=== PATIENT | female | born 1970 | race Caucasian/White ===

== ENCOUNTER 2016-04-05 15:17 | Inpatient (IN) | payer OTHER ==
[~2016-04-05] VITALS: Ht 165.1 cm; Wt 83.2 kg
[~2016-04-05 15:17] MED LIST: OXYC-57 PO; SENNTAB23 PO; TRAZ150T64 PO
[2016-04-05] MEDS ORDERED: SODIUM CHLORIDE 0.9% 1000ML 1,000 ML IV STA ×2 (15:38→17:35)
[2016-04-05] MEDS ORDERED: HYDR25TA5 PO (15:40)
[2016-04-05] MEDS ORDERED: LEVO1TAB33 PO (15:40)
[2016-04-05] MEDS ORDERED: CYM/30 PO (15:40)
[2016-04-05] MEDS ORDERED: BENZ100C84 PO (15:40)
[2016-04-05] MEDS ORDERED: OPTIRAY 320 IV PRN (15:45)
[2016-04-05 16:06] LABS: BASO % 0.7 %; BASO ABS # 0.07 K/uL (0-0.2); COMPLETE YES; EOS % 2.5 %; HEMATOCRIT 40.8 % (37-47); IG% 0.1 %; LYMPH % 23.8 %; LYMPH ABS # 2.32 K/uL (1.2-3.4); MEAN CELL VOLUME 90.5 fL (80-100); MEAN CORPUSCULAR HEMOGLOBIN 31.7 pg (25-34); MEAN PLATELET VOLUME 10.1 fL (7.4-10.4); NEUT % 66.9 %; PLATELET COUNT 305 K/uL (130-400); RED BLOOD COUNT 4.51 M/uL (4.2-5.4); WHITE BLOOD COUNT 9.74 K/uL (4.8-10.8)
[2016-04-05 16:35] LABS: BUN/CREATININE RATIO 15.9 (10-20); CALCIUM 8.6 mg/dl (8.5-10.1); CREATININE 0.88 mg/dl (0.60-1.20); MAGNESIUM 2.1 mg/dl (1.8-2.4); POTASSIUM 3.7 mmol/L (3.5-5.1)
--- NOTE | 2016-04-05 17:26 | DIAGNOSTIC IMAGING REPORT ---
CT ANGIOGRAPHY OF THE CHEST, PULMONARY EMBOLUS PROTOCOL CLINICAL HISTORY: Shortness of breath. COMPARISON STUDY: Chest CT January 04, 2015 and chest radiograph June 04, 2015. TECHNIQUE: Following IV administration of 77 mL of Optiray-320, helical axial images of the chest were obtained utilizing the pulmonary embolus protocol. Maximal intensity projections and sagittal and coronal reformats were viewed on an independent 3D workstation. IV contrast was administered without complication. CT DOSE: 379.01 mGy.cm FINDINGS: No pulmonary emboli are identified. The size the heart is normal. There is no evidence of thoracic aortic dissection. There is a trace pericardial effusion. There is a small left pleural effusion. There is moderate left lower lobe consolidation with associated tree-in-bud nodules. Note is made of mild bronchial wall thickening within the left lower lobe with multifocal mucus plugging. There is no central obstructing mass. No cavitation is present. There is no pneumothorax. Central airways are patent. Bony thorax and upper abdomen are unremarkable. A few prominent left hilar lymph nodes are likely reactive. IMPRESSION: 1. No pulmonary emboli identified. 2. Moderate left lower lobe consolidation suggestive of pneumonia. A PA and lateral chest radiograph in one month to ensure resolution is recommended. 3. Trace left pleural effusion. 4. Trace pericardial effusion. 5. A few prominent left hilar lymph nodes which are likely reactive. Electronically signed by: Jeffy De La Fuente M.D. 04/05/2016 5:24 PM Dictated Date/Time: 04/05/2016 5:16 PM
[2016-04-05] MEDS ORDERED: PIPERACILLIN/TAZOBACTAM 3.375 GM/100ML D5W IV STA (17:35)
[2016-04-05] MEDS ORDERED: VANCOMYCIN INJ 1,600 MG in SODIUM CHLORIDE 0.9% 250ML 250 ML IV STA (17:35)
[2016-04-05] MEDS ORDERED: ALBUT/IPRATROP 3MG/0.5MG NEB 3 ML VIAL INH STA (17:44)
--- NOTE | 2016-04-05 17:58 | EMERGENCY ROOM VISIT NOTE ---
History First contact with patient: 15:28 Chief Complaint: RESPIRATORY PROBLEMS Stated Complaint: PNEUMONIA Nursing Triage Summary: pt dx with pneumonia is currently on Levaquin has 1 day left pt reports being no better, productive cough short of breath History of Present Illness The patient is a 45 year old female who presents to the Emergency Room with complaints of shortness of breath for "a while." The patient reports that she was seen at [facility] 9 days ago and diagnosed with pneumonia. She has been taking Levaquin since then and states that today is day 9 of the antibiotic. She was also prescribed an albuterol inhaler but states that she can use this because it causes her to have palpitations. She reports she has been short of breath at rest. She is a healthcare worker. She reports she has had a cough with yellow sputum. She denies any history or family history of blood clots. She uses a Mirena for control. She does not smoke. She denies any recent long trips. She denies fevers/chills at home. She does report she has intermittent palpitations. She denies any chest pain, abdominal pain, nausea or vomiting. Review of Systems A complete 10-point Review of Systems was discussed with the patient, with pertinent positives and negatives listed in the History of Present Illness. All remaining Review of Systems questions can be considered negative unless otherwise specified. Past Medical/Surgical History Medical Problems: (1) HTN (hypertension) (2) Left lower lobe pneumonia (3) Tachycardia Surgical Problems: (1) H/O wisdom tooth extraction Family History Cancer Diabetes mellitus Heart disease Hypertension Social History Smoking Status: Never Smoker Alcohol Use: none Marital Status: Housing Status: lives with family Occupation Status: employed Current/Historical Medications Scheduled Duloxetine HCl (Cymbalta), 30 MG PO DAILY Hydrochlorothiazide (Hydrochlorothiazide), 25 MG PO DAILY Levofloxacin (Levaquin), 500 MG PO DAILY Trazodone Hcl (Desyrel), 200 MG PO HS Scheduled PRN Benzonatate (Tessalon Perles), 100 MG PO Q4 PRN for Cough Allergies Coded Allergies: No Known Allergies (Unverified , 04/05/16) Physical Exam Vital Signs Date Time Temp Pulse Resp B/P Pulse Ox O2 Delivery O2 Flow Rate FiO2 04/05/16 17:15 99 20 161/110 97 Room Air 04/05/16 16:01 119 04/05/16 16:00 116 20 130/105 95 Room Air 04/05/16 15:57 95 Room Air 04/05/16 15:57 95 Room Air 04/05/16 15:21 96 Room Air 04/05/16 15:19 36.8 127 20 158/95 96 Room Air Physical Exam VITALS: Vitals are noted on the nurse's note and reviewed by myself. Vital signs stable. GENERAL: This is a 45-year-old female, in no acute distress, nondiaphoretic, well-developed well-nourished. SKIN: Capillary reflex less than 2 seconds. HEENT: Normocephalic. PERRLA. EOMI. Nares patent. Mucous membranes moist. Neck is supple without nuchal rigidity. HEART: Regular rate and rhythm without murmurs gallops or rubs. LUNGS: Slight crackles in the left base. No retractions or accessory muscle use. ABDOMEN: Soft, nontender to palpation. EXTREMITIES: No lower extremity edema. NEURO: Patient was alert and oriented to person place and time. Medical Decision & Procedures ER Provider Diagnostic Interpretation: CT ANGIOGRAPHY OF THE CHEST, PULMONARY EMBOLUS PROTOCOL FINDINGS: No pulmonary emboli are identified. The size the heart is normal. There is no evidence of thoracic aortic dissection. There is a trace pericardial effusion. There is a small left pleural effusion. There is moderate left lower lobe consolidation with associated tree-in-bud nodules. Note is made of mild bronchial wall thickening within the left lower lobe with multifocal mucus plugging. There is no central obstructing mass. No cavitation is present. There is no pneumothorax. Central airways are patent. Bony thorax and upper abdomen are unremarkable. A few prominent left hilar lymph nodes are likely reactive. IMPRESSION: 1. No pulmonary emboli identified. 2. Moderate left lower lobe consolidation suggestive of pneumonia. A PA and lateral chest radiograph in one month to ensure resolution is recommended. 3. Trace left pleural effusion. 4. Trace pericardial effusion. 5. A few prominent left hilar lymph nodes which are likely reactive. Laboratory Results 04/05/16 15:52 Red Blood Count 4.51, Mean Corpuscular Volume 90.5, Mean Corpuscular Hemoglobin 31.7, Mean Corpuscular Hemoglobin Concent 35.0, Mean Platelet Volume 10.1, Neutrophils (%) (Auto) 66.9, Lymphocytes (%) (Auto) 23.8, Monocytes (%) (Auto) 6.0, Eosinophils (%) (Auto) 2.5, Basophils (%) (Auto) 0.7, Neutrophils # (Auto) 6.52, Lymphocytes # (Auto) 2.32, Monocytes # (Auto) 0.58, Eosinophils # (Auto) 0.24, Basophils # (Auto) 0.07 04/05/16 15:52 Test 04/05/16 15:00 04/05/16 15:52 Influenza Type A Antigen Neg for Influ A (NEG) Influenza Type B Antigen Neg for Influ B (NEG) White Blood Count 9.74 K/uL (4.8-10.8) Red Blood Count 4.51 M/uL (4.2-5.4) Hemoglobin 14.3 g/dL (12.0-16.0) Hematocrit 40.8 % (37-47) Mean Corpuscular Volume 90.5 fL (80-100) Mean Corpuscular Hemoglobin 31.7 pg (25-34) Mean Corpuscular Hemoglobin Concent 35.0 g/dl (32-36) Platelet Count 305 K/uL (130-400) Mean Platelet Volume 10.1 fL (7.4-10.4) Neutrophils (%) (Auto) 66.9 % Lymphocytes (%) (Auto) 23.8 % Monocytes (%) (Auto) 6.0 % Eosinophils (%) (Auto) 2.5 % Basophils (%) (Auto) 0.7 % Neutrophils # (Auto) 6.52 K/uL (1.4-6.5) Lymphocytes # (Auto) 2.32 K/uL (1.2-3.4) Monocytes # (Auto) 0.58 K/uL (0.11-0.59) Eosinophils # (Auto) 0.24 K/uL (0-0.5) Basophils # (Auto) 0.07 K/uL (0-0.2) RDW Standard Deviation 45.6 fL (36.4-46.3) RDW Coefficient of Variation 13.9 % (11.5-14.5) Immature Granulocyte % (Auto) 0.1 % Immature Granulocyte # (Auto) 0.01 K/uL (0.00-0.02) Anion Gap 12.0 mmol/L (3-11) Est Creatinine Clear Calc Drug Dose 87.2 ml/min Estimated GFR () 93.3 Estimated GFR (Non- 80.5 BUN/Creatinine Ratio 15.9 (10-20) Calcium Level 8.6 mg/dl (8.5-10.1) Magnesium Level 2.1 mg/dl (1.8-2.4) Total Bilirubin 0.3 mg/dl (0.2-1) Aspartate Amino Transf (AST/SGOT) 18 U/L (15-37) Alanine Aminotransferase (ALT/SGPT) 20 U/L (12-78) Alkaline Phosphatase 80 U/L (45-117) Total Protein 7.4 gm/dl (6.4-8.2) Albumin 3.7 gm/dl (3.4-5.0) Globulin 3.7 gm/dl (2.5-4.0) Albumin/Globulin Ratio 1.0 (0.9-2) Chemistry Specimen Hemolysis Date/Time Source Procedure Growth Status 04/05/16 00:00 Nasal MRSA DNA Surveillance Screen - Final Specimen Negative for MRSA by DNA Probe Complete Medications Administered Medications (Trade) Dose Ordered Sig/Christina Route Start Time Stop Time Status Last Admin Dose Admin Sodium Chloride 1,000 ml @ 999 mls/hr Q1H1M STAT IV 04/05/16 15:38 04/05/16 16:38 DC 04/05/16 16:03 999 MLS/HR Sodium Chloride 1,000 ml @ 999 mls/hr Q1H1M STAT IV 04/05/16 17:35 04/05/16 18:36 DC 04/05/16 17:51 999 MLS/HR Vancomycin HCl/ Sodium Chloride (Vancomycin Inj/ Nss 500ml) 532 ml @ 200 mls/hr NOW ONCE IV 04/05/16 18:00 04/05/16 20:39 DC 04/05/16 19:45 200 MLS/HR Albuterol/ Ipratropium 3 ml 3 ml NOW STAT INH 04/05/16 17:44 04/05/16 17:45 DC 04/05/16 17:49 3 ML Piperacillin Sod/ Tazobactam Sod/ Dextrose (Zosyn Iv/D5 100ml) 115 ml @ 230 mls/hr NOW ONCE IV 04/05/16 18:00 04/05/16 18:36 DC 04/05/16 18:38 230 MLS/HR Tramadol HCl (Ultram Tab) 100 mg Q4H PRN PO 04/05/16 18:15 2 18:14 04/05/16 18:38 100 MG Medical Decision Differential diagnosis includes pulmonary embolism, pneumonia, sepsis, pleural effusion, pneumothorax, arrhythmia, among others. The patient was evaluated as above. Labs were drawn and IV access was obtained. Imaging studies were performed and read by radiology as above. The patient was hydrated with 2 L normal saline solution. She was given a dose of vancomycin and Zosyn. She was given a DuoNeb treatment. The patient was reassessed multiple times during their stay in the emergency department and remained in stable condition. The patient is a 45-year-old female who presents today complaining of shortness of breath. The patient is currently being treated with Levaquin as an outpatient for pneumonia. She has already completed a 9 day course. She did appear slightly dyspneic at rest on my initial examination. Vital signs revealed a tachycardia in the 120s. EKG showed a sinus tachycardia. Labs revealed no leukocytosis, anemia or concerning electrolyte abnormalities. Lactic acid was elevated at 2.1. Blood cultures were drawn. Due to the patient 's dyspnea and tachycardia, a CT angiography was performed. This study was negative for pulmonary embolism, but did show evidence of a left lower pneumonia. The patient will be admitted for further evaluation of her pneumonia , possible sepsis and failed outpatient therapy. 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 Case was discussed with Dr. Pisano, ED attending physician, who agreed with my assessment and treatment plan. The patient's case was discussed with Dr. Patel, [facility] hospitalist, who agreed to evaluate the patient. Impression Primary Impression: Left lower lobe pneumonia Departure Information Referrals Michelle Cardozo MD (PCP) Patient Instructions A Signature Page, [facility]
[2016-04-05] MEDS ORDERED: PIPERACILL/TAZOBAC IV 3.375 GM in DEXTROSE 5% 100ML IV ONE (18:00)
[2016-04-05] MEDS ORDERED: VANCOMYCIN INJ 1,600 MG in SODIUM CHLORIDE 0.9% 500ML 500 ML IV ONE (18:00)
[2016-04-05] MEDS ORDERED: DiphenhydrAMINE HCL 50 MG/ML VIAL IV PRN (18:15)
[2016-04-05] MEDS ORDERED: ONDANSETRON INJ 2 MG/ML 2 ML VIAL IV PRN ×2 (18:15)
[2016-04-05] MEDS ORDERED: TRAMADOL HCL 50 MG TAB PO PRN (18:15)
[2016-04-05] MEDS ORDERED: KETOROLAC TROMETHAMINE 30 MG/ML VIAL IV PRN (18:15)
[2016-04-05] MEDS ORDERED: ALUMINUM/MAGNESIUM/SIMETH (MAALOX MAX) 30 ML UDC PO PRN (18:15)
[2016-04-05] MEDS ORDERED: MAGNESIUM HYDROXIDE SUSP 30 ML UDC PO PRN (18:15)
[2016-04-05] MEDS ORDERED: ZOLPIDEM TARTRATE 5 MG TAB PO PRN (18:15)
[2016-04-05] MEDS ORDERED: BISACODYL 10 MG SUPP PR PRN (18:15)
[2016-04-05] MEDS ORDERED: MoRPHine SULFATE 4 MG/ML 1 ML CARP\\VIAL IV PRN (18:15)
[2016-04-05] MEDS ORDERED: HYDROCODONE/HOMATROPINE SYRUP 5MG/1.5MG 5ML UDP PO PRN ×2 (18:15)
[2016-04-05] MEDS ORDERED: LORAZEPAM 2 MG/ML 1 ML VIAL IV PRN (18:15)
[2016-04-05] MEDS ORDERED: PROMETHAZINE HCL INJ 12.5 MG in SODIUM CHLORIDE 0.9% 50ML 50 ML IV PRN (18:15)
[2016-04-05] MEDS ORDERED: ACETAMINOPHEN 325 MG TAB PO PRN (18:15)
[2016-04-05] MEDS ORDERED: MoRPHine SULFATE 2 MG/ML CARP IV PRN (18:15)
[2016-04-05] MEDS: TRAMADOL HCL 50 MG TAB PO PRN (18:38)
[2016-04-05] MEDS ORDERED: PIPERACILL/TAZOBAC CONSULT ACTIVE PRN (19:30)
[2016-04-05] MEDS ORDERED: VANCOMYCIN CONSULT ACTIVE PRN (19:30)
[2016-04-05 19:45] VITALS: BP 146/110; PULSE 97; TEMP 36.6; O2SAT 97; Ht 165.1 cm; Wt 83.2 kg
--- NOTE | 2016-04-05 20:12 | History and Physical ---
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 She has not been able to use the albuterol inhaler prescribed as it makes her heart race. She continues to have cough productive of yellow sputum, and continues to have heart palpitations. Past Medical/Surgical History Medical Problems: (1) HTN (hypertension) Status: Chronic Surgical Problems: (1) H/O wisdom tooth extraction Status: Resolved Family History Cancer Diabetes mellitus Heart disease Hypertension Social History Smoking Status: Never Smoker Smokeless Tobacco Use: No Alcohol Use: none Drug Use: none Marital Status: Housing status: lives with family Occupational Status: employed Immunizations History of Influenza Vaccine: No History of Tetanus Vaccine?: Unknown History of Pneumococcal: No History of Hepatitis B Vaccine: No Multi-Drug Resistant Organisms History of MDRO: No Allergies Coded Allergies: No Known Allergies (Unverified , 04/05/16) Home Medications Scheduled Duloxetine HCl (Cymbalta), 30 MG PO DAILY Hydrochlorothiazide (Hydrochlorothiazide), 25 MG PO DAILY Levofloxacin (Levaquin), 500 MG PO DAILY Trazodone Hcl (Desyrel), 200 MG PO HS Scheduled PRN Benzonatate (Tessalon Perles), 100 MG PO Q4 PRN for Cough Review of Systems The patient denies lower extremity swelling, vision change, hearing change, sore throat, fevers, chills, sweats, weight change, fatigue, nausea, vomiting, abdominal pain, pelvic pain, blood in urine or stool, dysuria, urinary frequency or urgency, lightheadedness, dizziness, headache, memory loss, rash, abnormal bruising or bleeding, imbalance, focal weakness, numbness or tingling in arms or legs, arthralgias or myalgias, back or neck pain, night sweats. The review of systems is otherwise negative other than for that already noted above, and at least 10 systems have been reviewed. Physical Exam Vital Signs Date Time Temp Pulse Resp B/P Pulse Ox O2 Delivery O2 Flow Rate FiO2 04/05/16 18:50 107 20 138/96 96 Room Air 04/05/16 17:15 99 20 161/110 97 Room Air 04/05/16 16:01 119 04/05/16 16:00 116 20 130/105 95 Room Air 04/05/16 15:57 95 Room Air 04/05/16 15:57 95 Room Air 04/05/16 15:21 96 Room Air 04/05/16 15:19 36.8 127 20 158/95 96 Room Air The patient is awake, well-developed and adequately nourished, alert and oriented 3, normocephalic and atraumatic, lying in bed and in acute distress during paroxysmal coughing. HEENT--PERRL, EOMI, mucous membranes moist, and oropharynx normal. Neck--supple, no JVD or bruits, thyroid normal, trachea midline, no adenopathy. Heart--normal S1 and S2, no extra beats, no murmurs, rubs or gallops. Lungs--decreased breath sounds left greater than right base. Abdomen--normal bowel sounds and soft, nontender and nondistended, no hernias or masses, no organomegaly. Extremities--no cyanosis, clubbing or edema. There are good distal pulses b/l. Dermatologic--normal skin turgor, normal color, warm and dry, no abnormal lymph nodes, no rash. Neurologic--cranial nerves II through XII grossly intact, motor and sensory examination normal. Rheumatologic--normal range of motion, nontender, muscles and joints. Psychiatric--normal affect. Diagnostics Laboratory Results Results Past 24 Hours Test 04/05/16 15:00 04/05/16 15:52 04/05/16 19:05 Range/Units Influenza Type A Antigen Neg for Influ A NEG Influenza Type B Antigen Neg for Influ B NEG White Blood Count 9.74 4.8-10.8 K/uL Red Blood Count 4.51 4.2-5.4 M/uL Hemoglobin 14.3 12.0-16.0 g/dL Hematocrit 40.8 37-47 % Mean Corpuscular Volume 90.5 80-100 fL Mean Corpuscular Hemoglobin 31.7 25-34 pg Mean Corpuscular Hemoglobin Concent 35.0 32-36 g/dl Platelet Count 305 130-400 K/uL Mean Platelet Volume 10.1 7.4-10.4 fL Neutrophils (%) (Auto) 66.9 % Lymphocytes (%) (Auto) 23.8 % Monocytes (%) (Auto) 6.0 % Eosinophils (%) (Auto) 2.5 % Basophils (%) (Auto) 0.7 % Neutrophils # (Auto) 6.52 1.4-6.5 K/uL Lymphocytes # (Auto) 2.32 1.2-3.4 K/uL Monocytes # (Auto) 0.58 0.11-0.59 K/uL Eosinophils # (Auto) 0.24 0-0.5 K/uL Basophils # (Auto) 0.07 0-0.2 K/uL RDW Standard Deviation 45.6 36.4-46.3 fL RDW Coefficient of Variation 13.9 11.5-14.5 % Immature Granulocyte % (Auto) 0.1 % Immature Granulocyte # (Auto) 0.01 0.00-0.02 K/uL Sodium Level 140 136-145 mmol/L Potassium Level 3.7 3.5-5.1 mmol/L Chloride Level 101 98-107 mmol/L Carbon Dioxide Level 27 21-32 mmol/L Anion Gap 12.0 3-11 mmol/L Blood Urea Nitrogen 14 7-18 mg/dl Creatinine 0.88 0.60-1.20 mg/dl Est Creatinine Clear Calc Drug Dose 87.2 ml/min Estimated GFR () 93.3 Estimated GFR (Non- 80.5 BUN/Creatinine Ratio 15.9 10-20 Random Glucose 113 70-99 mg/dl Lactic Acid Level 2.1 1.7 0.4-2.0 mmol/L Calcium Level 8.6 8.5-10.1 mg/dl Magnesium Level 2.1 1.8-2.4 mg/dl Total Bilirubin 0.3 0.2-1 mg/dl Aspartate Amino Transf (AST/SGOT) 18 15-37 U/L Alanine Aminotransferase (ALT/SGPT) 20 12-78 U/L Alkaline Phosphatase 80 45-117 U/L Total Protein 7.4 6.4-8.2 gm/dl Albumin 3.7 3.4-5.0 gm/dl Globulin 3.7 2.5-4.0 gm/dl Albumin/Globulin Ratio 1.0 0.9-2 Chemistry Specimen Hemolysis Microbiology Results 04/05/16 Blood Culture, Received Pending 04/05/16 Blood Culture, Received Pending Diagnostic Radiology Patient Name: MARY FELDMAN Unit Number: [id number] Dictated: 04/05/161715 Transcribed: 04/05/161715 JA Printed Date/Time: [~ rep prt dt]/[~ rep prt tm] [~ rep ct labl] - [~ rep ct ivnm] [facility] [place] [address] Dictated: 04/05/161715 Transcribed: 04/05/161715 JA Printed Date/Time: [~ rep prt dt]/[~ rep prt tm] [~ rep ct labl] - [~ rep ct ivnm] [~ rep ct add3]] CT ANGIOGRAPHY OF THE CHEST, PULMONARY EMBOLUS PROTOCOL CLINICAL HISTORY: Shortness of breath. COMPARISON STUDY: Chest CT January 04, 2015 and chest radiograph June 04, 2015. TECHNIQUE: Following IV administration of 77 mL of Optiray-320, helical axial images of the chest were obtained utilizing the pulmonary embolus protocol. Maximal intensity projections and sagittal and coronal reformats were viewed on an independent 3D workstation. IV contrast was administered without complication. CT DOSE: 379.01 mGy.cm FINDINGS: No pulmonary emboli are identified. The size the heart is normal. There is no evidence of thoracic aortic dissection. There is a trace pericardial effusion. There is a small left pleural effusion. There is moderate left lower lobe consolidation with associated tree-in-bud nodules. Note is made of mild bronchial wall thickening within the left lower lobe with multifocal mucus plugging. There is no central obstructing mass. No cavitation is present. There is no pneumothorax. Central airways are patent. Bony thorax and upper abdomen are unremarkable. A few prominent left hilar lymph nodes are likely reactive. IMPRESSION: 1. No pulmonary emboli identified. 2. Moderate left lower lobe consolidation suggestive of pneumonia. A PA and lateral chest radiograph in one month to ensure resolution is recommended. 3. Trace left pleural effusion. 4. Trace pericardial effusion. 5. A few prominent left hilar lymph nodes which are likely reactive. Electronically signed by: Jeffy De La Fuente M.D. 04/05/2016 5:24 PM Dictated Date/Time: 04/05/2016 5:16 PM The status of this report is Signed. Draft = Not yet reviewed or approved by Radiologist. Signed = Reviewed and approved by Radiologist. <AttendingPhy></AttendingPhy> <FamilyPhy>Michelle Cardozo MD</FamilyPhy> < PrimaryPhy>Michelle Cardozo MD</PrimaryPhy> <UnitNumber>[id number]</UnitNumber > <VisitNumber>[id number]</VisitNumber> <PatientName>MARY FELDMAN</ PatientName> <DateOfBirth>1970</DateOfBirth> <Location>[facility]</Location> < ServiceDate>04/05/16</ServiceDate> <MNE>ESINDI</MNE> <OrderingPhy>Catalina Adam PA-C</OrderingPhy> <OrderingPhyMNE>f rep ord dr alexis</OrderingPhyMNE> < DictatingPhyMNE>f rep dict dr alexis</DictatingPhyMNE> <CCListMNE>f rep ct mne</ CCListMNE> <AdmittingPhyMNE>f pt admit dr alexis</AdmittingPhyMNE> <AttendingPhyMNE >f pt attend dr alexis</AttendingPhyMNE> <ConsultingPhyMNE>f pt consult dr alexis</ConsultingPhyMNE> <FamilyPhyMNE>f pt fam dr alexis</FamilyPhyMNE> <OtherPhyMNE>f pt other dr alexis</OtherPhyMNE> < PrimaryPhyMNE>f pt prim care dr alexis</PrimaryPhyMNE> <ReferringPhyMNE>f pt referring dr alexis</ReferringPhyMNE> Impression Assessment and Plan 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 She'll be placed on vancomycin IV per pharmacy adjusted dosing, Zosyn 3.375 mg IV every 6 hours, Levaquin 500 mg IV daily, guaifenesin extended release 600 mg by mouth twice a day, Xopenex with Atrovent nebulizers to use every 6 hours while awake every 2 hours when necessary, Hycodan syrup 5-10 ML's by mouth every 6 hours when necessary cough, Solu-Medrol 40 mg IV every 8 hours, and nasal cannula 2 L O2 titrated to keep pulse ox greater than or equal to 92%. Hypertension with tachycardia--patient reports that she had recently been started on Hydrocort thiazide by her PCP and was due for a follow-up visit soon. We'll hold the HCTZ since she is relatively volume depleted at this point , and so place her on Cardizem 30 mg by mouth every 6 hours with hold parameters. Insomnia--continue trazodone 200 mg by mouth at bedtime. Depression--continue duloxetine 30 mg by mouth daily. Headache--we'll have available Tylenol when necessary, tramadol when necessary, morphine IV when necessary. Level of Care Telemetry Advanced Directives Existing Advance Directive: No Existing Living Will: No Existing Power of Sales Incentive Analyst: No Resuscitation Status FULL RESUSCITATION VTE Prophylaxis VTE Risk Assessment Done? Y/N: Yes Risk Level: Low Given or contraindicated: SCD's Social Service Consult None Apply
[2016-04-05] MEDS: DILTIAZEM HCL 30 MG TAB PO SCH (20:54)
[2016-04-05] MEDS: GUAIFENESIN 600 MG TABCR PO SCH (20:54)
[2016-04-05] MEDS: METHYLPREDNISOLONE IV 40 MG in SYRINGE 0 ML IV SCH (20:55)
[2016-04-05] MEDS ORDERED: LEVALBUTEROL/IPRATROPIUM NEB INH SCH (21:00)
[2016-04-05 21:23] VITALS: PULSE 86; O2SAT 96
[2016-04-05] MEDS: LEVALBUTEROL 1.25MG/0.5ML NEB INH SCH (21:23)
[2016-04-05] MEDS: IPRATROPIUM BROMIDE NEB SOLN 0.02% 2.5 ML VIAL INH SCH (21:23)
--- NOTE | 2016-04-05 21:45 | Pharmacy Progress Note ---
Pharmacy Antibiotic Consult Date of Service: Apr 05, 2016. Pharmacy Dosing Scope Pharmacy is consulted to initiate IV Vancomycin/Zosyn dosing therapy, order appropriate labs and adjust drug dose/frequency. Subjective The patient is a 45 year old female admitted on Apr 05, 2016 at 18:15. Objective Height (Feet): 5 Height (Inches): 5.00 Weight (Kilograms): 82.700 Lab Results (24hrs): Laboratory Tests Test 04/05/16 15:52 BUN/Creatinine Ratio 15.9 Blood Urea Nitrogen 14 mg/dl Creatinine 0.88 mg/dl White Blood Count 9.74 K/uL Red Blood Count 4.51 M/uL Hemoglobin 14.3 g/dL Hematocrit 40.8 % Mean Corpuscular Volume 90.5 fL Mean Corpuscular Hemoglobin 31.7 pg Mean Corpuscular Hemoglobin Concent 35.0 g/dl Platelet Count 305 K/uL Mean Platelet Volume 10.1 fL Neutrophils (%) (Auto) 66.9 % Lymphocytes (%) (Auto) 23.8 % Monocytes (%) (Auto) 6.0 % Eosinophils (%) (Auto) 2.5 % Basophils (%) (Auto) 0.7 % Neutrophils # (Auto) 6.52 K/uL Lymphocytes # (Auto) 2.32 K/uL Monocytes # (Auto) 0.58 K/uL Eosinophils # (Auto) 0.24 K/uL Basophils # (Auto) 0.07 K/uL Micro Results: Item Value Date Time Blood Culture Received 04/05/16 1548 Blood Pending Blood Culture Received 04/05/16 1548 Blood Pending Recent Pertinent Medications Item Value Date Time Vancomycin HCl 532 ml @ 200 mls/hr 04/05/16 1800 1600 mg/Sodium NOW ONCE/IV 04/05/16 1945 Chloride Vancomycin HCl 275 ml @ 125 mls/hr 04/06/16 0600 1250 mg/Sodium Q8H/IV Chloride Item Value Date Time Piperacillin Sod/ 115 ml @ 230 mls/hr 04/05/16 1800 Tazobactam Sod NOW ONCE/IV 04/05/16 1838 3.375 gm/Dextrose Piperacillin Sod/ 115 ml @ 28.75 mls/hr 04/06/16 0200 Tazobactam Sod Q8H/IV 3.375 gm/Dextrose Item Value Date Time Levofloxacin 100 ml @ 100 mls/hr 04/05/16 2200 Assessment & Plan 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 Thank you
[2016-04-05] MEDS ORDERED: LEVOFLOXACIN / D5W 500 MG IV SCH (22:00)
[2016-04-05] MEDS ORDERED: NURSING VERBAL MED ORDER ONE (23:00)
[2016-04-05] MEDS: TRAZODONE HCL 100 MG TAB PO SCH (23:30)
[2016-04-06] VITALS (9 sets, daily range): BP systolic 106–137; BP diastolic 65–91; PULSE 76–127; TEMP 36.7–36.9; O2SAT 93–96
[2016-04-06] MEDS: LEVALBUTEROL 1.25MG/0.5ML NEB INH SCH ×4 (02:25→20:34)
[2016-04-06] MEDS: PIPERACILL/TAZOBAC IV 3.375 GM in DEXTROSE 5% 100ML 100 ML IV SCH ×3 (02:25→18:35)
[2016-04-06] MEDS: IPRATROPIUM BROMIDE NEB SOLN 0.02% 2.5 ML VIAL INH SCH ×4 (02:25→20:34)
[2016-04-06 05:54] LABS: BASO % 0.3 %; BASO ABS # 0.02 K/uL (0-0.2); COMPLETE YES; HEMATOCRIT 38.6 % (37-47); IG% 0.3 %; LYMPH % 12.1 %; LYMPH ABS # 0.85 K/uL (1.2-3.4); MEAN CELL VOLUME 90.6 fL (80-100); MEAN CORPUSCULAR HEMOGLOBIN 30.8 pg (25-34); MEAN CORPUSCULAR HGB CONC 33.9 g/dl (32-36); MEAN PLATELET VOLUME 9.8 fL (7.4-10.4); MONO % 0.1 %; NEUT % 87.2 %; PLATELET COUNT 270 K/uL (130-400); RED BLOOD COUNT 4.26 M/uL (4.2-5.4); WHITE BLOOD COUNT 7.05 K/uL (4.8-10.8)
[2016-04-06] MEDS ORDERED: VANCOMYCIN INJ 1,250 MG in SODIUM CHLORIDE 0.9% 250ML 250 ML IV SCH (06:00)
[2016-04-06 06:24] LABS: BUN/CREATININE RATIO 10.6 (10-20); CALCIUM 7.9 mg/dl (8.5-10.1); CREATININE 0.85 mg/dl (0.60-1.20); MAGNESIUM 2.3 mg/dl (1.8-2.4); POTASSIUM 4.1 mmol/L (3.5-5.1)
[2016-04-06] MEDS: METHYLPREDNISOLONE IV 40 MG in SYRINGE 0 ML IV SCH (07:00)
[2016-04-06] MEDS: TRAMADOL HCL 50 MG TAB PO PRN ×3 (08:22→23:14)
[2016-04-06] MEDS: DILTIAZEM HCL 30 MG TAB PO SCH ×4 (08:23→20:22)
[2016-04-06] MEDS: GUAIFENESIN 600 MG TABCR PO SCH ×2 (08:23→20:22)
--- NOTE | 2016-04-06 14:46 | Progress Note ---
Subjective Date of Service: Apr 06, 2016. Subjective Pt evaluation today including: conversation w/ patient, physical exam, lab review, review of studies, review of inpatient medication list Pain: no pain PO Intake: adequate Voiding: no voiding problems discussed events from the past week, she was seen at urgent care 10 days ago and started on Levaquin for pneumonia reports that she never felt better despite taking the Levaquin she experienced heart palpitations and tachycardia so she stopped Albuterol 5 days ago she presented with tachycardia, increased dyspnea, productive cough with yellow sputum CT chest ruled out a PE but did show a left lower lobe consolidation Review of Systems Constitutional: + chills, + fatigue, + sweats, + weakness, No fever, No weight loss Respiratory: + cough, + dyspnea on exertion, + sputum, No dyspnea at rest, No hemoptysis, No shortness of breath, No wheezing Cardiac: No PND, No chest pain, No claudication, No edema, No orthopnea Abdomen: No GI bleeding, No constipation, No diarrhea, No nausea, No pain, No problem reported, No see HPI, No vomiting Musculoskeletal: No calf pain, No joint pain, No muscle pain, No problem reported, No see HPI, No swelling Neurologic: No balance problems, No memory loss, No numbness/tingling, No paralysis, No problem reported, No see HPI, No vertigo, No weakness Psychiatric: No anhedonism, No anxiety, No depression symptoms, No insomnia, No problem reported, No see HPI, No substance abuse Heme: No abnormal bleeding/bruising, No clotting problems, No night sweats, No problem reported, No see HPI, No swollen lymph nodes Endo: No excessive thirst, No excessive urination, No fatigue, No problem reported, No see HPI Skin: No bleeding, No color change, No itch, No new/changing skin lesions, No problem reported, No rash, No see HPI Medications Current Inpatient Medications Medications (Trade) Dose Ordered Sig/Christina Route Start Time Stop Time Status Last Admin Dose Admin Ioversol (Optiray 320) 100 ml UD PRN IV 04/05/16 15:45 04/09/16 15:44 Lorazepam (Ativan Inj) 0.5 mg Q4H PRN IV 04/05/16 18:15 05/05/16 18:14 Acetaminophen (Tylenol Tab) 650 mg Q4H PRN PO 04/05/16 18:15 05/05/16 18:14 Magnesium Hydroxide (Milk Of Magnesia Susp) 30 ml Q6H PRN PO 04/05/16 18:15 05/05/16 18:14 Bisacodyl (Dulcolax Supp) 10 mg DAILY PRN [place] 04/05/16 18:15 05/05/16 18:14 Diphenhydramine HCl (Benadryl Inj) 25 mg Q4H PRN IV 04/05/16 18:15 05/05/16 18:14 Al Hydrox/Mg Hydrox/ Simethicone 15 ml 15 ml Q4H PRN PO 04/05/16 18:15 05/05/16 18:14 Promethazine HCl/ Sodium Chloride (Phenergan Inj/ Nss 50ml) 50.5 ml @ 202 mls/hr Q4H PRN IV 04/05/16 18:15 05/05/16 18:14 Zolpidem Tartrate (Ambien Tab) 5 mg HSZ PRN PO 04/05/16 18:15 05/05/16 18:14 Morphine Sulfate (MoRPHine SULFATE INJ) 2 mg Q2H PRN IV 04/05/16 18:15 04/19/16 18:14 Morphine Sulfate (MoRPHine SULFATE INJ) 4 mg Q2H PRN IV 04/05/16 18:15 04/19/16 18:14 Tramadol HCl (Ultram Tab) 100 mg Q4H PRN PO 04/05/16 18:15 05/05/16 18:14 04/06/16 14:26 100 MG Tramadol HCl (Ultram Tab) 50 mg Q4H PRN PO 04/05/16 18:15 05/05/16 18:14 04/05/16 23:32 50 MG Ketorolac Tromethamine 30 mg 30 mg Q6H PRN IV 04/05/16 18:15 04/10/16 18:14 04/06/16 11:02 30 MG Piperacillin Sod/ Tazobactam Sod/ Dextrose (Zosyn Iv/D5 100ml) 115 ml @ 28.75 mls/ hr Q8H IV 04/06/16 02:00 04/13/16 01:59 04/06/16 11:00 28.75 MLS/HR Ondansetron HCl (Zofran Inj) 4 mg Q6H PRN IV 04/05/16 18:15 05/05/16 18:14 Guaifenesin (Mucinex Contr Rel Tab) 600 mg BID PO 04/05/16 21:00 05/05/16 20:59 04/06/16 08:23 600 MG Hydrocodone Bit/ Homatropine Methylb (Hycodan Syrup) 5 ml Q4H PRN PO 04/05/16 18:15 04/19/16 18:14 Hydrocodone Bit/ Homatropine Methylb (Hycodan Syrup) 10 ml Q4H PRN PO 04/05/16 18:15 04/19/16 18:14 Diltiazem HCl (Cardizem Tab) 30 mg QID PO 04/05/16 21:00 05/05/16 20:59 04/06/16 14:22 30 MG Piperacillin Sod/ Tazobactam Sod (Consult) 1 ea UD PRN N/A 04/05/16 19:30 05/05/16 19:29 Ipratropium [place] (Atrovent 0.02% 0.5MG/2.5ML Neb) 0.5 mg Q6R INH 04/05/16 21:00 05/05/16 20:59 04/06/16 07:45 0.5 MG Levalbuterol (Xopenex 1.25MG/ 0.5ML Neb) 1.25 mg Q6R INH 04/05/16 21:00 05/05/16 20:59 04/06/16 07:45 1.25 MG Trazodone HCl (Desyrel Tab) 200 mg HS PO 04/05/16 23:30 05/05/16 23:29 04/05/16 23:30 200 MG Objective Vital Signs Date Time Temp Pulse Resp B/P Pulse Ox O2 Delivery O2 Flow Rate FiO2 04/06/16 08:00 36.9 100 22 130/80 93 Room Air 04/06/16 08:00 93 Room Air 04/06/16 07:45 79 14 93 Room Air 04/06/16 04:00 94 Room Air 04/06/16 04:00 36.8 76 15 106/65 93 Room Air 04/06/16 00:00 94 Room Air 04/06/16 00:00 36.7 93 20 137/91 94 Room Air 04/05/16 21:23 86 14 96 Room Air 04/05/16 19:45 36.6 97 15 146/110 97 Room Air 04/05/16 18:50 107 20 138/96 96 Room Air 04/05/16 17:15 99 20 161/110 97 Room Air 04/05/16 16:01 119 04/05/16 16:00 116 20 130/105 95 Room Air 04/05/16 15:57 95 Room Air 04/05/16 15:57 95 Room Air 04/05/16 15:21 96 Room Air 04/05/16 15:19 36.8 127 20 158/95 96 Room Air Physical Exam General Appearance: WD/WN, no apparent distress Eyes: normal inspection, EOMI, sclerae normal ENT: normal ENT inspection, hearing grossly normal, pharynx normal Neck: supple, no adenopathy, no JVD, trachea midline Respiratory/Chest: chest non-tender, normal breath sounds, no respiratory distress, no accessory muscle use, + decreased breath sounds, + crackles (left base) Cardiovascular: no edema, no gallop, no JVD, no murmur, + tachycardia Abdomen: normal bowel sounds, non tender, soft, no organomegaly Extremities: normal range of motion, non-tender, normal inspection, no pedal edema, no calf tenderness Neurologic/Psychiatric: 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, no motor/sensory deficits, alert, normal mood/affect, oriented x 3 Laboratory Results Last 24 Hours Test 04/05/16 15:00 04/05/16 15:52 04/05/16 19:05 04/06/16 05:35 Influenza Type A Antigen Neg for Influ A Influenza Type B Antigen Neg for Influ B White Blood Count 9.74 K/uL 7.05 K/uL Red Blood Count 4.51 M/uL 4.26 M/uL Hemoglobin 14.3 g/dL 13.1 g/dL Hematocrit 40.8 % 38.6 % Mean Corpuscular Volume 90.5 fL 90.6 fL Mean Corpuscular Hemoglobin 31.7 pg 30.8 pg Mean Corpuscular Hemoglobin Concent 35.0 g/dl 33.9 g/dl Platelet Count 305 K/uL 270 K/uL Mean Platelet Volume 10.1 fL 9.8 fL Neutrophils (%) (Auto) 66.9 % 87.2 % Lymphocytes (%) (Auto) 23.8 % 12.1 % Monocytes (%) (Auto) 6.0 % 0.1 % Eosinophils (%) (Auto) 2.5 % 0.0 % Basophils (%) (Auto) 0.7 % 0.3 % Neutrophils # (Auto) 6.52 K/uL 6.15 K/uL Lymphocytes # (Auto) 2.32 K/uL 0.85 K/uL Monocytes # (Auto) 0.58 K/uL 0.01 K/uL Eosinophils # (Auto) 0.24 K/uL 0.00 K/uL Basophils # (Auto) 0.07 K/uL 0.02 K/uL RDW Standard Deviation 45.6 fL 46.1 fL RDW Coefficient of Variation 13.9 % 13.9 % Immature Granulocyte % (Auto) 0.1 % 0.3 % Immature Granulocyte # (Auto) 0.01 K/uL 0.02 K/uL Sodium Level 140 mmol/L 142 mmol/L Potassium Level 3.7 mmol/L 4.1 mmol/L Chloride Level 101 mmol/L 106 mmol/L Carbon Dioxide Level 27 mmol/L 24 mmol/L Anion Gap 12.0 mmol/L 12.0 mmol/L Blood Urea Nitrogen 14 mg/dl 9 mg/dl Creatinine 0.88 mg/dl 0.85 mg/dl Est Creatinine Clear Calc Drug Dose 87.2 ml/min 90.6 ml/min Estimated GFR () 93.3 97.3 Estimated GFR (Non- 80.5 83.9 BUN/Creatinine Ratio 15.9 10.6 Random Glucose 113 mg/dl 156 mg/dl Lactic Acid Level 2.1 mmol/L 1.7 mmol/L Calcium Level 8.6 mg/dl 7.9 mg/dl Magnesium Level 2.1 mg/dl 2.3 mg/dl Total Bilirubin 0.3 mg/dl Aspartate Amino Transf (AST/SGOT) 18 U/L Alanine Aminotransferase (ALT/SGPT) 20 U/L Alkaline Phosphatase 80 U/L Total Protein 7.4 gm/dl Albumin 3.7 gm/dl Globulin 3.7 gm/dl Albumin/Globulin Ratio 1.0 Chemistry Specimen Hemolysis Assessment and Plan 45 yo female with dyspnea, productive cough, tachycardia and chills/sweats despite 9 days of Levaquin 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, Zosyn and Levaquin will d/c Levaquin since she already took for 9 days, d/c Vanco since MRSA swab negative continue Zosyn, Levalbuterol stop steroids since there is no wheezing, no h/o bronchitis or asthma Tachycardia: unclear etiology, not taking Albuterol, no signs of hypoxia, doubt this is due to pneumonia, no pain that would be driving HR could be anxiety, will make Ativan available PRN, appears to have normal HR when resting also, will check TSH in the morning to r/o hyperthyroidism can continue Cardizem for now HTN: continue Cardizem 30mg q6, holding the HCTZ that she was on outpatient Insomnia--continue trazodone 200 mg by mouth at bedtime. Depression--continue duloxetine 30 mg by mouth daily. Headache--we'll have available Tylenol when necessary, tramadol when necessary, morphine IV when necessary.
[2016-04-06] MEDS: TRAZODONE HCL 100 MG TAB PO SCH (23:14)
[2016-04-07] VITALS (11 sets, daily range): BP systolic 115–135; BP diastolic 63–88; PULSE 73–117; TEMP 36.6–36.8; O2SAT 92–97
[2016-04-07] MEDS: PIPERACILL/TAZOBAC IV 3.375 GM in DEXTROSE 5% 100ML 100 ML IV SCH ×3 (02:00→19:00)
[2016-04-07] MEDS: LEVALBUTEROL 1.25MG/0.5ML NEB INH SCH ×4 (02:35→21:00)
[2016-04-07] MEDS: IPRATROPIUM BROMIDE NEB SOLN 0.02% 2.5 ML VIAL INH SCH ×4 (02:35→21:00)
[2016-04-07] MEDS ORDERED: VANCOMYCIN TROUGH SCH (05:30)
[2016-04-07 05:53] LABS: BASO % 0.1 %; BASO ABS # 0.02 K/uL (0-0.2); COMPLETE YES; HEMATOCRIT 34.6 % (37-47); IG% 0.2 %; LYMPH % 15.3 %; LYMPH ABS # 2.46 K/uL (1.2-3.4); MEAN CELL VOLUME 91.3 fL (80-100); MEAN CORPUSCULAR HEMOGLOBIN 30.6 pg (25-34); MEAN CORPUSCULAR HGB CONC 33.5 g/dl (32-36); MONO % 4.3 %; NEUT % 80.1 %; PLATELET COUNT 255 K/uL (130-400); RED BLOOD COUNT 3.79 M/uL (4.2-5.4); WHITE BLOOD COUNT 16.06 K/uL (4.8-10.8)
[2016-04-07 06:19] LABS: BUN/CREATININE RATIO 20.3 (10-20); CALCIUM 7.8 mg/dl (8.5-10.1); CREATININE 0.79 mg/dl (0.60-1.20); MAGNESIUM 2.4 mg/dl (1.8-2.4); POTASSIUM 3.7 mmol/L (3.5-5.1)
[2016-04-07 06:30] LABS: THYROID STIMULATING HORMONE 0.619 uIu/ml (0.300-4.500)
[2016-04-07] MEDS: DILTIAZEM HCL 30 MG TAB PO SCH ×2 (08:14→11:59)
[2016-04-07] MEDS: GUAIFENESIN 600 MG TABCR PO SCH ×2 (08:14→20:42)
--- NOTE | 2016-04-07 12:07 | Pulmonary Consultation ---
History General Date of Service: Apr 07, 2016. Stated Complaint: Left Lower Lobe Pneumonia,Tachycardia HPI The patient is a 45 year old female who presents to [facility] with complaints of Left Lower Lobe Pneumonia,Tachycardia. The patient's primary care provider is Michelle Cardozo MD. 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 She notes a history 3-4 weeks prior where her family had GI issues with nausea and vomiting. Following this episode she started to have a dry nonproductive coughing with increasing fatigue, myalgias, arthralgias for 10 day window. She then presented to a walk-in clinic and was given the diagnosis of left lower lobe pneumonia and initiated on Levaquin. She's noted minimal benefit from the Levaquin. She continues to have cough, dyspnea on exertion, fatigue, fevers, chills and myalgias. She does note increasing production of the initiation of the Levaquin. Today she continues to note cough but mildly decreased in its intensity, myalgias and severe fatigue. Historian: patient, caregiver, EMS Review of Systems Constitutional: reports: fever, malaise, weakness Eyes: reports: no symptoms ENT: reports: no symptoms Cardiovascular: reports: no symptoms Respiratory: reports: cough, shortness of breath Gastrointestinal: reports: diarrhea, nausea, vomiting Genitourinary - Female: reports: no symptoms Musculoskeletal: reports: arthralgias, myalgias Integumentary: reports: no symptoms Neurologic: reports: no symptoms Psychiatric: reports: no symptoms Endocrine: no symptoms Hematologic / Lymphatic: no symptoms Allergic / Immunologic: no symptoms Past Medical History Past Medical History: 1. Benign essential hypertension 2. Uterine leiomyoma 3. Migraines 4. Abnormal uterine glucose 5. History of Hearing difficulty 6. Hip pain, acute, right 7. Insomnia, persistent 8. Lumbar spine pain 9. Neuropathy of foot, right Past Surgical History: 1) Spinal Diskect Osteophytect Lumb Interspace Microdiscec Family History Cancer Diabetes mellitus Heart disease Hypertension Social History Hx Tobacco Use In Past Year?: No Smoking Status: Never Smoker Marital status: Housing status: lives with family Occupational Status: employed Immunizations History of Influenza Vaccine: No History of Tetanus Vaccine?: Unknown History of Pneumococcal: No History of Hepatitis B Vaccine: No History of MDRO History of MDRO: No Allergies Coded Allergies: No Known Allergies (Unverified , 04/05/16) Current Medications Reported Home Medications Medications Dose Route/Sig Max Daily Dose Days Date Category Cymbalta (Duloxetine HCl) 30 Mg Cap 30 Mg PO DAILY 04/05/16 Reported Hydrochlorothiazide 25 Mg Tab 25 Mg PO DAILY 04/05/16 Reported Tessalon [place] (Benzonatate) 100 Mg Cap 100 Mg PO Q4 PRN 04/05/16 Reported Levaquin (Levofloxacin) 500 Mg Tab 500 Mg PO DAILY 04/05/16 Reported Desyrel (Trazodone HCl) 150 Mg Tab 200 Mg PO HS 01/04/15 Reported Physical Physical Exam Vital Signs: Date Time Temp Pulse Resp B/P Pulse Ox O2 Delivery O2 Flow Rate FiO2 04/07/16 10:45 36.7 97 15 94 04/07/16 08:00 Room Air 04/07/16 08:00 36.7 97 15 135/78 94 04/07/16 07:54 117 22 95 Room Air 04/07/16 04:00 95 Room Air 04/07/16 04:00 36.8 76 15 115/63 93 04/07/16 02:35 78 14 95 Room Air 04/07/16 00:00 95 Room Air 04/07/16 00:00 36.7 75 17 118/75 95 Room Air 04/06/16 20:36 111 14 96 Room Air 04/06/16 20:00 94 Room Air 04/06/16 20:00 36.8 127 22 124/86 93 Room Air 04/06/16 16:00 95 Room Air 04/06/16 16:00 36.9 112 24 129/84 93 Room Air 04/06/16 14:05 110 14 93 Room Air 04/06/16 12:00 36.7 92 24 127/75 93 Room Air 04/06/16 12:00 93 Room Air General Appearance: mild distress Head: NORMOCEPHALIC, ATRAUMATIC Eyes: PERRLA, NO DISCHARGE, EOMI, SCLERAE NORMAL ENT: NORMAL MOUTH EXAM, NORMAL THROAT EXAM, NORMAL DENTAL EXAM Neck: NORMAL RANGE OF MOTION, NO TENDERNESS, TRACHEA MIDLINE, NO STRIDOR, SUPPLE, NO THYROMEGALY, NO LYMPHADENOPATHY, NO MENINGISMUS, NO NUCHAL RIGIDITY Respiratory: other (mostly normal breath sounds but notable decrease in the left lower lobe/rhonchi) Cardiovasular: REGULAR RATE/RHYTHM, NORMAL S1S2, NO M/G/R, NO MURMUR, NO GALLOP , NO RUB, NO JVD Abdomen: NON TENDER, NORMAL BOWEL SOUNDS, NO REBOUND, NO MASSES, NO GUARDING, NO ORGANOMEGALY Genitourinary - Female: EXTERNAL GENITALIA NORMAL Back: NORMAL INSPECTION, other (mild tenderness appreciated around the left scapula ) Upper Extremities: NO EDEMA Lower Extremities: NO EDEMA Pulses: carotid (R) (2+), carotid (L) (2+), dorsalis pedis (R) (2+), dorsalis pedis (L) (2+) Neuro: ALERT, ORIENTED x 3, NORMAL MOTOR EXAM, NORMAL SENSATION, NORMAL CEREBELLAR EXAM, NORMAL SPEECH Reflexes: biceps (R) (2+), bicpes (L) (2+) Babinski Testing: right (downgoing), left (downgoing) Psychiatric: NORMAL AFFECT, NO SUICIDAL IDEATION, CONTRACTS FOR SAFETY Diagnostics Labs Results Past 24 Hours Test 04/07/16 05:20 Range/Units White Blood Count 16.06 4.8-10.8 K/uL Red Blood Count 3.79 4.2-5.4 M/uL Hemoglobin 11.6 12.0-16.0 g/dL Hematocrit 34.6 37-47 % Mean Corpuscular Volume 91.3 80-100 fL Mean Corpuscular Hemoglobin 30.6 25-34 pg Mean Corpuscular Hemoglobin Concent 33.5 32-36 g/dl Platelet Count 255 130-400 K/uL Mean Platelet Volume 10.0 7.4-10.4 fL Neutrophils (%) (Auto) 80.1 % Lymphocytes (%) (Auto) 15.3 % Monocytes (%) (Auto) 4.3 % Eosinophils (%) (Auto) 0.0 % Basophils (%) (Auto) 0.1 % Neutrophils # (Auto) 12.86 1.4-6.5 K/uL Lymphocytes # (Auto) 2.46 1.2-3.4 K/uL Monocytes # (Auto) 0.69 0.11-0.59 K/uL Eosinophils # (Auto) 0.00 0-0.5 K/uL Basophils # (Auto) 0.02 0-0.2 K/uL RDW Standard Deviation 48.1 36.4-46.3 fL RDW Coefficient of Variation 14.4 11.5-14.5 % Immature Granulocyte % (Auto) 0.2 % Immature Granulocyte # (Auto) 0.03 0.00-0.02 K/uL Sodium Level 142 136-145 mmol/L Potassium Level 3.7 3.5-5.1 mmol/L Chloride Level 106 98-107 mmol/L Carbon Dioxide Level 27 21-32 mmol/L Anion Gap 9.0 3-11 mmol/L Blood Urea Nitrogen 16 7-18 mg/dl Creatinine 0.79 0.60-1.20 mg/dl Est Creatinine Clear Calc Drug Dose 97.8 ml/min Estimated GFR () 106.3 Estimated GFR (Non- 91.7 BUN/Creatinine Ratio 20.3 10-20 Random Glucose 112 70-99 mg/dl Calcium Level 7.8 8.5-10.1 mg/dl Magnesium Level 2.4 1.8-2.4 mg/dl Thyroid Stimulating Hormone (TSH) 0.619 0.300-4.500 uIu/ml Diagnostic Radiology CT ANGIOGRAPHY OF THE CHEST, PULMONARY EMBOLUS PROTOCOL 1. No pulmonary emboli identified. 2. Moderate left lower lobe consolidation suggestive of pneumonia. EKG EKG: sinus tachycardia Rhythm strip: Sinus tachycardia Impression Assessment and Plan 45-year-old female with left lower lobe pneumonia: #1 pneumonia: Patient most likely had viral infection that is progressed to pneumonia. It is somewhat worrisome as it did not respond to Levaquin but only 500 mg per day. Atypical infections will require higher doses suggest 750 mg daily. 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 She also initiate atypical coverage with azithromycin. I will initiate these therapies. I will also send off for pro-calcitonin. I agree with the primary teams discontinuation of steroids. We'll also initiate incentive spirometer, flutter valve and ambulation to decrease risk of atelectasis.
[2016-04-07] MEDS ORDERED: VANCOMYCIN CONSULT ACTIVE PRN (13:45)
--- NOTE | 2016-04-07 14:02 | Progress Note ---
Subjective Date of Service: Apr 07, 2016. Subjective Pt evaluation today including: conversation w/ patient, physical exam, lab review, conversation w/ business operations consultant, review of inpatient medication list Pain: no pain PO Intake: adequate Voiding: no voiding problems increased dyspnea today, still no hypoxia difficult time bringing up phlegm appreciate pulmonary consultation today, added back Vancomycin, flutter valve, increase activity discussed tachycardia, was in normal range when sleeping so possibly just a physiologic effect, anxiety? will move to the floor Review of Systems Constitutional: + fatigue, + weakness Respiratory: + cough, + shortness of breath All Other Systems: Reviewed and Negative Medications Current Inpatient Medications Medications (Trade) Dose Ordered Sig/Christina Route Start Time Stop Time Status Last Admin Dose Admin Ioversol (Optiray 320) 100 ml UD PRN IV 04/05/16 15:45 04/09/16 15:44 Lorazepam (Ativan Inj) 0.5 mg Q4H PRN IV 04/05/16 18:15 05/05/16 18:14 Acetaminophen (Tylenol Tab) 650 mg Q4H PRN PO 04/05/16 18:15 05/05/16 18:14 Magnesium Hydroxide (Milk Of Magnesia Susp) 30 ml Q6H PRN PO 04/05/16 18:15 05/05/16 18:14 Bisacodyl (Dulcolax Supp) 10 mg DAILY PRN [place] 04/05/16 18:15 05/05/16 18:14 Diphenhydramine HCl (Benadryl Inj) 25 mg Q4H PRN IV 04/05/16 18:15 05/05/16 18:14 Al Hydrox/Mg Hydrox/ Simethicone 15 ml 15 ml Q4H PRN PO 04/05/16 18:15 05/05/16 18:14 Promethazine HCl/ Sodium Chloride (Phenergan Inj/ Nss 50ml) 50.5 ml @ 202 mls/hr Q4H PRN IV 04/05/16 18:15 05/05/16 18:14 Zolpidem Tartrate (Ambien Tab) 5 mg HSZ PRN PO 04/05/16 18:15 05/05/16 18:14 Morphine Sulfate (MoRPHine SULFATE INJ) 2 mg Q2H PRN IV 04/05/16 18:15 04/19/16 18:14 Morphine Sulfate (MoRPHine SULFATE INJ) 4 mg Q2H PRN IV 04/05/16 18:15 04/19/16 18:14 Tramadol HCl (Ultram Tab) 100 mg Q4H PRN PO 04/05/16 18:15 05/05/16 18:14 04/06/16 23:14 100 MG Tramadol HCl (Ultram Tab) 50 mg Q4H PRN PO 04/05/16 18:15 05/05/16 18:14 04/05/16 23:32 50 MG Ketorolac Tromethamine 30 mg 30 mg Q6H PRN IV 04/05/16 18:15 04/10/16 18:14 04/06/16 11:02 30 MG Piperacillin Sod/ Tazobactam Sod/ Dextrose (Zosyn Iv/D5 100ml) 115 ml @ 28.75 mls/ hr Q8H IV 04/06/16 02:00 04/13/16 01:59 04/07/16 10:40 28.75 MLS/HR Ondansetron HCl (Zofran Inj) 4 mg Q6H PRN IV 04/05/16 18:15 05/05/16 18:14 Guaifenesin (Mucinex Contr Rel Tab) 600 mg BID PO 04/05/16 21:00 05/05/16 20:59 04/07/16 08:14 600 MG Hydrocodone Bit/ Homatropine Methylb (Hycodan Syrup) 5 ml Q4H PRN PO 04/05/16 18:15 04/19/16 18:14 Hydrocodone Bit/ Homatropine Methylb (Hycodan Syrup) 10 ml Q4H PRN PO 04/05/16 18:15 04/19/16 18:14 Diltiazem HCl (Cardizem Tab) 30 mg QID PO 04/05/16 21:00 05/05/16 20:59 04/07/16 08:14 30 MG Piperacillin Sod/ Tazobactam Sod (Consult) 1 ea UD PRN N/A 04/05/16 19:30 05/05/16 19:29 Ipratropium [place] (Atrovent 0.02% 0.5MG/2.5ML Neb) 0.5 mg Q6R INH 04/05/16 21:00 05/05/16 20:59 04/07/16 07:54 0.5 MG Levalbuterol (Xopenex 1.25MG/ 0.5ML Neb) 1.25 mg Q6R INH 04/05/16 21:00 05/05/16 20:59 04/07/16 07:54 1.25 MG Trazodone HCl (Desyrel Tab) 200 mg HS PO 04/05/16 23:30 05/05/16 23:29 04/06/16 23:14 200 MG Vancomycin HCl (Vancomycin 1gm/ 270ml Nss) 1 gm BID IV 04/07/16 20:00 04/08/16 19:59 UNV Vancomycin HCl (Consult) 1 ea UD PRN N/A 04/07/16 13:45 05/07/16 13:44 Objective Vital Signs Date Time Temp Pulse Resp B/P Pulse Ox O2 Delivery O2 Flow Rate FiO2 04/07/16 10:45 36.7 97 15 94 04/07/16 08:00 Room Air 04/07/16 08:00 36.7 97 15 135/78 94 04/07/16 07:54 117 22 95 Room Air 04/07/16 04:00 95 Room Air 04/07/16 04:00 36.8 76 15 115/63 93 04/07/16 02:35 78 14 95 Room Air 04/07/16 00:00 95 Room Air 04/07/16 00:00 36.7 75 17 118/75 95 Room Air 04/06/16 20:36 111 14 96 Room Air 04/06/16 20:00 94 Room Air 04/06/16 20:00 36.8 127 22 124/86 93 Room Air 04/06/16 16:00 95 Room Air 04/06/16 16:00 36.9 112 24 129/84 93 Room Air 04/06/16 14:05 110 14 93 Room Air Physical Exam General Appearance: WD/WN, no apparent distress Eyes: normal inspection, EOMI, sclerae normal ENT: normal ENT inspection, hearing grossly normal, pharynx normal Neck: supple, no adenopathy, no JVD, trachea midline Respiratory/Chest: chest non-tender, lungs clear, normal breath sounds, no respiratory distress, no accessory muscle use Cardiovascular: regular rate, rhythm, no edema, no gallop, no JVD, no murmur Abdomen: normal bowel sounds, non tender, soft, no organomegaly Extremities: normal range of motion, non-tender, normal inspection, no pedal edema, no calf tenderness 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1 % Neutrophils # (Auto) 12.86 K/uL Lymphocytes # (Auto) 2.46 K/uL Monocytes # (Auto) 0.69 K/uL Eosinophils # (Auto) 0.00 K/uL Basophils # (Auto) 0.02 K/uL RDW Standard Deviation 48.1 fL RDW Coefficient of Variation 14.4 % Immature Granulocyte % (Auto) 0.2 % Immature Granulocyte # (Auto) 0.03 K/uL Sodium Level 142 mmol/L Potassium Level 3.7 mmol/L Chloride Level 106 mmol/L Carbon Dioxide Level 27 mmol/L Anion Gap 9.0 mmol/L Blood Urea Nitrogen 16 mg/dl Creatinine 0.79 mg/dl Est Creatinine Clear Calc Drug Dose 97.8 ml/min Estimated GFR () 106.3 Estimated GFR (Non- 91.7 BUN/Creatinine Ratio 20.3 Random Glucose 112 mg/dl Calcium Level 7.8 mg/dl Magnesium Level 2.4 mg/dl Thyroid Stimulating Hormone (TSH) 0.619 uIu/ml Assessment and Plan 45 yo female with dyspnea, productive cough, tachycardia and chills/sweats despite 9 days of Levaquin 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, Zosyn and Levaquin continue Zosyn, add back Vancomycin for MRSA coverage, flutter valve, bedside spirometer, ambulate in halls stop steroids since there is no wheezing, no h/o bronchitis or asthma pulm consult appreciated Tachycardia: unclear etiology, not taking Albuterol, no signs of hypoxia, doubt this is due to pneumonia, no pain that would be driving HR could be anxiety, will make Ativan available PRN, HR is normal when sleeping TSH normal will stop Cardizem and watch for HR response HTN: stop Cardizem, can resume HCTZ if BP goes up Insomnia--continue trazodone 200 mg by mouth at bedtime. Depression--continue duloxetine 30 mg by mouth daily. Headache--we'll have available Tylenol when necessary, tramadol when necessary, morphine IV when necessary.
[2016-04-07] MEDS ORDERED: VANCOMYCIN INJ 2,000 MG in SODIUM CHLORIDE 0.9% 500ML 500 ML IV ONE (14:30)
--- NOTE | 2016-04-07 15:35 | Pharmacy Progress Note ---
Pharmacy Antibiotic Consult Date of Service: Apr 07, 2016. Pharmacy Dosing Scope Pharmacy is consulted to initiate Vancomycin IV dosing therapy, order appropriate labs and adjust drug dose/frequency. Subjective The patient is a 45 year old female admitted on Apr 05, 2016 at 18:15. Objective Height (Feet): 5 Height (Inches): 5.00 Weight (Kilograms): 83.200 Lab Results (24hrs): Laboratory Tests Test 04/07/16 05:20 BUN/Creatinine Ratio 20.3 Blood Urea Nitrogen 16 mg/dl Creatinine 0.79 mg/dl White Blood Count 16.06 K/uL Red Blood Count 3.79 M/uL Hemoglobin 11.6 g/dL Hematocrit 34.6 % Mean Corpuscular Volume 91.3 fL Mean Corpuscular Hemoglobin 30.6 pg Mean Corpuscular Hemoglobin Concent 33.5 g/dl Platelet Count 255 K/uL Mean Platelet Volume 10.0 fL Neutrophils (%) (Auto) 80.1 % Lymphocytes (%) (Auto) 15.3 % Monocytes (%) (Auto) 4.3 % Eosinophils (%) (Auto) 0.0 % Basophils (%) (Auto) 0.1 % Neutrophils # (Auto) 12.86 K/uL Lymphocytes # (Auto) 2.46 K/uL Monocytes # (Auto) 0.69 K/uL Eosinophils # (Auto) 0.00 K/uL Basophils # (Auto) 0.02 K/uL Micro Results: Item Value Date Time Blood Culture - Preliminary Resulted 04/05/16 1548 Blood NO GROWTH TO DATE. Blood Culture - Preliminary Resulted 04/05/16 1548 Blood NO GROWTH TO DATE. MRSA DNA Surveillance Screen - Final Complete 04/05/16 0000 Nasal Specimen Negative for MRSA by DNA Probe Assessment & Plan Assessment * 45 y/o F being re-started on IV Vancomycin for worsening pneumonia. She was on Vancomycin 04/05-04/06, but this was D/C'd as patient's nasal swab was negative for MRSA. Patient not improving clinically with WBC's up to 16. * Patient with good renal function. Most recent sCr = 0.79 mg/dL with estimated CrCl ~98 mL/min. Estimated pharmacokinetic parameters: * Ke ~0.085/hr, T1/2 ~8.1 hrs * As Vancomycin has been D/C'd >24 hours, will need to re-load Plan VANCOMYCIN * Give Vancomycin 2000mg (~24mg/kg) IV x 1 as a loading dose * Initiate Vancomycin 1150mg (~14mg/kg) IV q10 as maintenance regimen * Goal Vancomycin trough 15-20 mcg/mL for pneumonia * Trough level ordered for 04/09 @ 0530 (prior to 4th dose and therefore reflective of steady state) ZOSYN * Continue Zosyn 3.375g IV q8 (extended infusion over 4 hours) for CrCl >20 mL/ min Pharmacy will continue to follow and will adjust dose/frequency as necessary. Thank you
[2016-04-07] MEDS ORDERED: VANCOMYCIN 1GM/270ML NSS IV SCH (20:00)
[2016-04-07] MEDS: TRAMADOL HCL 50 MG TAB PO PRN (23:17)
[2016-04-07] MEDS: TRAZODONE HCL 100 MG TAB PO SCH (23:17)
[2016-04-08] MEDS: VANCOMYCIN INJ 1,150 MG in SODIUM CHLORIDE 0.9% 250ML 250 ML IV SCH ×2 (00:25→09:54)
[2016-04-08] MEDS: IPRATROPIUM BROMIDE NEB SOLN 0.02% 2.5 ML VIAL INH SCH ×3 (02:11→14:49)
[2016-04-08] MEDS: LEVALBUTEROL 1.25MG/0.5ML NEB INH SCH ×3 (02:11→14:49)
[2016-04-08] MEDS: PIPERACILL/TAZOBAC IV 3.375 GM in DEXTROSE 5% 100ML 100 ML IV SCH ×2 (03:00→09:54)
[2016-04-08 07:32] VITALS: PULSE 83; O2SAT 97
[2016-04-08 07:47] VITALS: BP 134/89; PULSE 73; TEMP 36.6; O2SAT 95
[2016-04-08 08:00] VITALS: O2SAT 95
[2016-04-08] MEDS: GUAIFENESIN 600 MG TABCR PO SCH (08:07)
[2016-04-08 08:16] LABS: BASO % 0.7 %; BASO ABS # 0.07 K/uL (0-0.2); COMPLETE YES; EOS % 1.9 %; HEMATOCRIT 37.1 % (37-47); IG% 0.2 %; LYMPH % 49.8 %; LYMPH ABS # 4.76 K/uL (1.2-3.4); MEAN CELL VOLUME 91.4 fL (80-100); MEAN CORPUSCULAR HEMOGLOBIN 30.5 pg (25-34); MEAN CORPUSCULAR HGB CONC 33.4 g/dl (32-36); MEAN PLATELET VOLUME 9.8 fL (7.4-10.4); MONO % 4.3 %; NEUT % 43.1 %; PLATELET COUNT 257 K/uL (130-400); RED BLOOD COUNT 4.06 M/uL (4.2-5.4); WHITE BLOOD COUNT 9.56 K/uL (4.8-10.8)
[2016-04-08 08:39] LABS: BUN/CREATININE RATIO 18.2 (10-20); CALCIUM 8.2 mg/dl (8.5-10.1); CREATININE 0.76 mg/dl (0.60-1.20); MAGNESIUM 2.5 mg/dl (1.8-2.4); POTASSIUM 3.6 mmol/L (3.5-5.1)
--- NOTE | 2016-04-08 11:54 | Progress Note ---
Subjective Date of Service: Apr 08, 2016. Subjective Pt evaluation today including: conversation w/ patient, physical exam, lab review, conversation w/ acquisition consultant, review of inpatient medication list Pain: no pain PO Intake: adequate Voiding: no voiding problems feeling less short of breath, still intermittently tachycardic, moving more air , cough is non-productive eating well, urinating requesting Diflucan for vaginal candidiasis Review of Systems Constitutional: + fatigue, + weakness Respiratory: + cough, + dyspnea on exertion, + shortness of breath Cardiac: + palpitations All Other Systems: Reviewed and Negative Medications Current Inpatient Medications Medications (Trade) Dose Ordered Sig/Christina Route Start Time Stop Time Status Last Admin Dose Admin Ioversol (Optiray 320) 100 ml UD PRN IV 04/05/16 15:45 04/09/16 15:44 Lorazepam (Ativan Inj) 0.5 mg Q4H PRN IV 04/05/16 18:15 05/05/16 18:14 Acetaminophen (Tylenol Tab) 650 mg Q4H PRN PO 04/05/16 18:15 05/05/16 18:14 Magnesium Hydroxide (Milk Of Magnesia Susp) 30 ml Q6H PRN PO 04/05/16 18:15 05/05/16 18:14 Bisacodyl (Dulcolax Supp) 10 mg DAILY PRN [place] 04/05/16 18:15 05/05/16 18:14 Diphenhydramine HCl (Benadryl Inj) 25 mg Q4H PRN IV 04/05/16 18:15 05/05/16 18:14 Al Hydrox/Mg Hydrox/ Simethicone 15 ml 15 ml Q4H PRN PO 04/05/16 18:15 05/05/16 18:14 Promethazine HCl/ Sodium Chloride (Phenergan Inj/ Nss 50ml) 50.5 ml @ 202 mls/hr Q4H PRN IV 04/05/16 18:15 05/05/16 18:14 Zolpidem Tartrate (Ambien Tab) 5 mg HSZ PRN PO 04/05/16 18:15 05/05/16 18:14 Morphine Sulfate (MoRPHine SULFATE INJ) 2 mg Q2H PRN IV 04/05/16 18:15 04/19/16 18:14 Morphine Sulfate (MoRPHine SULFATE INJ) 4 mg Q2H PRN IV 04/05/16 18:15 04/19/16 18:14 Tramadol HCl (Ultram Tab) 100 mg Q4H PRN PO 04/05/16 18:15 05/05/16 18:14 04/07/16 23:17 100 MG Tramadol HCl (Ultram Tab) 50 mg Q4H PRN PO 04/05/16 18:15 05/05/16 18:14 04/05/16 23:32 50 MG Ketorolac Tromethamine 30 mg 30 mg Q6H PRN IV 04/05/16 18:15 04/10/16 18:14 04/06/16 11:02 30 MG Piperacillin Sod/ Tazobactam Sod/ Dextrose (Zosyn Iv/D5 100ml) 115 ml @ 28.75 mls/ hr Q8H IV 04/06/16 02:00 04/13/16 01:59 04/08/16 09:54 28.75 MLS/HR Ondansetron HCl (Zofran Inj) 4 mg Q6H PRN IV 04/05/16 18:15 05/05/16 18:14 Guaifenesin (Mucinex Contr Rel Tab) 600 mg BID PO 04/05/16 21:00 05/05/16 20:59 04/08/16 08:07 600 MG Hydrocodone Bit/ Homatropine Methylb (Hycodan Syrup) 5 ml Q4H PRN PO 04/05/16 18:15 04/19/16 18:14 Hydrocodone Bit/ Homatropine Methylb (Hycodan Syrup) 10 ml Q4H PRN PO 04/05/16 18:15 04/19/16 18:14 Piperacillin Sod/ Tazobactam Sod (Consult) 1 ea UD PRN N/A 04/05/16 19:30 05/05/16 19:29 Ipratropium [place] (Atrovent 0.02% 0.5MG/2.5ML Neb) 0.5 mg Q6R INH 04/05/16 21:00 05/05/16 20:59 04/08/16 07:32 0.5 MG Levalbuterol (Xopenex 1.25MG/ 0.5ML Neb) 1.25 mg Q6R INH 04/05/16 21:00 05/05/16 20:59 04/08/16 07:30 1.25 MG Trazodone HCl (Desyrel Tab) 200 mg HS PO 04/05/16 23:30 05/05/16 23:29 04/07/16 23:17 200 MG Vancomycin HCl 1 ea 1 ea UD PRN N/A 04/07/16 13:45 05/07/16 13:44 Vancomycin HCl/ Sodium Chloride (Vancomycin Inj/ Nss 250ml) 273 ml @ 125 mls/hr Q10H IV 04/08/16 00:00 04/14/16 00:00 04/08/16 09:54 125 MLS/HR Objective Vital Signs Date Time Temp Pulse Resp B/P Pulse Ox O2 Delivery O2 Flow Rate FiO2 04/08/16 08:00 95 Room Air 04/08/16 07:47 36.6 73 18 134/89 95 Room Air 04/08/16 07:32 83 14 97 Room Air 04/07/16 23:43 36.8 73 16 134/88 92 Room Air 04/07/16 20:01 36.8 81 18 122/84 94 Room Air 04/07/16 16:00 Room Air 04/07/16 15:43 36.6 104 20 130/68 95 Room Air 04/07/16 14:00 101 14 97 Room Air Physical Exam General Appearance: WD/WN, no apparent distress Eyes: normal inspection, EOMI, sclerae normal ENT: normal ENT inspection, hearing grossly normal, pharynx normal Neck: supple, no adenopathy, no JVD, trachea midline Respiratory/Chest: chest non-tender, lungs clear, normal breath sounds, no respiratory distress, no accessory muscle use Cardiovascular: no edema, no gallop, no JVD, no murmur, + tachycardia Abdomen: normal bowel sounds, non tender, soft, no organomegaly Extremities: normal range of motion, non-tender, normal inspection, no pedal edema, no calf tenderness 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, no motor/sensory deficits, alert, normal mood/affect, oriented x 3 Skin: normal color, warm/dry, no rash Lymphatic: no adenopathy Laboratory Results Last 24 Hours Test 04/07/16 13:15 04/08/16 07:47 Procalcitonin < 0.05 ng/mL White Blood Count 9.56 K/uL Red Blood Count 4.06 M/uL Hemoglobin 12.4 g/dL Hematocrit 37.1 % Mean Corpuscular Volume 91.4 fL Mean Corpuscular Hemoglobin 30.5 pg Mean Corpuscular Hemoglobin Concent 33.4 g/dl Platelet Count 257 K/uL Mean Platelet Volume 9.8 fL Neutrophils (%) (Auto) 43.1 % Lymphocytes (%) (Auto) 49.8 % Monocytes (%) (Auto) 4.3 % Eosinophils (%) (Auto) 1.9 % Basophils (%) (Auto) 0.7 % Neutrophils # (Auto) 4.12 K/uL Lymphocytes # (Auto) 4.76 K/uL Monocytes # (Auto) 0.41 K/uL Eosinophils # (Auto) 0.18 K/uL Basophils # (Auto) 0.07 K/uL RDW Standard Deviation 50.2 fL RDW Coefficient of Variation 14.8 % Immature Granulocyte % (Auto) 0.2 % Immature Granulocyte # (Auto) 0.02 K/uL Sodium Level 141 mmol/L Potassium Level 3.6 mmol/L Chloride Level 106 mmol/L Carbon Dioxide Level 25 mmol/L Anion Gap 10.0 mmol/L Blood Urea Nitrogen 14 mg/dl Creatinine 0.76 mg/dl Est Creatinine Clear Calc Drug Dose 101.7 ml/min Estimated GFR () 111.4 Estimated GFR (Non- 96.1 BUN/Creatinine Ratio 18.2 Random Glucose 78 mg/dl Calcium Level 8.2 mg/dl Magnesium Level 2.5 mg/dl Assessment and Plan 45 yo female with dyspnea, productive cough, tachycardia and chills/sweats despite 9 days of Levaquin 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, Zosyn and Levaquin continue Zosyn, add back Vancomycin for MRSA coverage, flutter valve, bedside spirometer, ambulate in halls stop steroids since there is no wheezing, no h/o bronchitis or asthma pulm consult appreciated recommend continuing Vancomycin for 5 day course Tachycardia: unclear etiology, not taking Albuterol, no signs of hypoxia, doubt this is due to pneumonia, no pain that would be driving HR could be anxiety, will make Ativan available PRN, HR is normal when sleeping TSH normal will stop Cardizem and watch for HR response HR lower today when awake, continues to be in the 70's while sleeping so suspect increased adrenergic activity, anxiety playing a role HTN: stop Cardizem, can resume HCTZ if BP goes up but BP has been stable thus far Insomnia--continue trazodone 200 mg by mouth at bedtime. Depression--continue duloxetine 30 mg by mouth daily. Headache--we'll have available Tylenol when necessary, tramadol when necessary, morphine IV when necessary. Vaginal candidiasis -- Diflucan 150mg PO x 1
[2016-04-08] MEDS ORDERED: FLUCONAZOLE 100 MG TAB PO ONE (12:00)
[2016-04-08 14:25] VITALS: PULSE 87; O2SAT 95
[2016-04-08 14:44] VITALS: BP 125/86; PULSE 88; TEMP 36.6; O2SAT 96
--- NOTE | 2016-04-08 14:45 | Pulmonology Progress Note ---
Pulmonary Progress Note Date of Service Apr 08, 2016. Attending Dr. Carlos Olson Subjective Patient doing well today notes no pulmonary signs or symptoms but continued mild fatigue Objective Patient looks good not using accessory muscles showing no signs of increased respiratory/work of breathing. DNA probe reviewed showing no MRSA Vital signs reviewed: Stable Gen: Healthy female in no apparent distress Respiratory: Clear to auscultation bilaterally Cardiac: S1-S2 regular rate and rhythm no murmurs rubs or gallops Assessment & Plan 45-year-old female admitted for left lower lobe pneumonia and progressive respiratory insufficiency: #1 pneumonia: Patient has progressed well the last 24 hours and her MRSA swab is negative. Reviewing guidelines for MRSA treatment shows agreeable to discontinue vancomycin once a swab was negative. As a patient is doing well suggest we discharge her on Augmentin 875/125 twice a day for a total of 10 day course of antibiotics. #[address] CT: Patient did have a abnormal thoracic CT with left lower lobe infiltrates. I like to see her in 6 weeks with follow-up noncontrast CT to be definitive about the infiltrates clearing. I did review the patient's chest x- ray from 03/28/16. I could not appreciate any left lower lobe infiltrates at that time this is why like to repeat the noncontrast CT Data Medications: Current Inpatient Medications Medications (Trade) Dose Ordered Sig/Christina Route Start Time Stop Time Status Last Admin Dose Admin Ioversol (Optiray 320) 100 ml UD PRN IV 04/05/16 15:45 04/09/16 15:44 Lorazepam (Ativan Inj) 0.5 mg Q4H PRN IV 04/05/16 18:15 05/05/16 18:14 Acetaminophen (Tylenol Tab) 650 mg Q4H PRN PO 04/05/16 18:15 05/05/16 18:14 Magnesium Hydroxide (Milk Of Magnesia Susp) 30 ml Q6H PRN PO 04/05/16 18:15 05/05/16 18:14 Bisacodyl (Dulcolax Supp) 10 mg DAILY PRN [place] 04/05/16 18:15 05/05/16 18:14 Diphenhydramine HCl (Benadryl Inj) 25 mg Q4H PRN IV 04/05/16 18:15 05/05/16 18:14 Al Hydrox/Mg Hydrox/ Simethicone 15 ml 15 ml Q4H PRN PO 04/05/16 18:15 05/05/16 18:14 Promethazine HCl/ Sodium Chloride (Phenergan Inj/ Nss 50ml) 50.5 ml @ 202 mls/hr Q4H PRN IV 04/05/16 18:15 05/05/16 18:14 Zolpidem Tartrate (Ambien Tab) 5 mg HSZ PRN PO 04/05/16 18:15 05/05/16 18:14 Morphine Sulfate (MoRPHine SULFATE INJ) 2 mg Q2H PRN IV 04/05/16 18:15 04/19/16 18:14 Morphine Sulfate (MoRPHine SULFATE INJ) 4 mg Q2H PRN IV 04/05/16 18:15 04/19/16 18:14 Tramadol HCl (Ultram Tab) 100 mg Q4H PRN PO 04/05/16 18:15 05/05/16 18:14 04/07/16 23:17 100 MG Tramadol HCl (Ultram Tab) 50 mg Q4H PRN PO 04/05/16 18:15 05/05/16 18:14 04/05/16 23:32 50 MG Ketorolac Tromethamine 30 mg 30 mg Q6H PRN IV 04/05/16 18:15 04/10/16 18:14 04/06/16 11:02 30 MG Piperacillin Sod/ Tazobactam Sod/ Dextrose (Zosyn Iv/D5 100ml) 115 ml @ 28.75 mls/ hr Q8H IV 04/06/16 02:00 04/13/16 01:59 04/08/16 09:54 28.75 MLS/HR Ondansetron HCl (Zofran Inj) 4 mg Q6H PRN IV 04/05/16 18:15 05/05/16 18:14 Guaifenesin (Mucinex Contr Rel Tab) 600 mg BID PO 04/05/16 21:00 05/05/16 20:59 04/08/16 08:07 600 MG Hydrocodone Bit/ Homatropine Methylb (Hycodan Syrup) 5 ml Q4H PRN PO 04/05/16 18:15 04/19/16 18:14 Hydrocodone Bit/ Homatropine Methylb (Hycodan Syrup) 10 ml Q4H PRN PO 04/05/16 18:15 04/19/16 18:14 Piperacillin Sod/ Tazobactam Sod (Consult) 1 ea UD PRN N/A 04/05/16 19:30 05/05/16 19:29 Ipratropium [place] (Atrovent 0.02% 0.5MG/2.5ML Neb) 0.5 mg Q6R INH 04/05/16 21:00 05/05/16 20:59 04/08/16 07:32 0.5 MG Levalbuterol (Xopenex 1.25MG/ 0.5ML Neb) 1.25 mg Q6R INH 04/05/16 21:00 05/05/16 20:59 04/08/16 07:30 1.25 MG Trazodone HCl (Desyrel Tab) 200 mg HS PO 04/05/16 23:30 05/05/16 23:29 04/07/16 23:17 200 MG Vancomycin HCl 1 ea 1 ea UD PRN N/A 04/07/16 13:45 05/07/16 13:44 Vancomycin HCl/ Sodium Chloride (Vancomycin Inj/ Nss 250ml) 273 ml @ 125 mls/hr Q10H IV 04/08/16 00:00 04/14/16 00:00 04/08/16 09:54 125 MLS/HR I & O: 24-Hour Column 04/08/16 08:00 Intake Total 444 ml Balance 444 ml Vital Signs: Date Time Temp Pulse Resp B/P Pulse Ox O2 Delivery O2 Flow Rate FiO2 04/08/16 08:00 95 Room Air 04/08/16 07:47 36.6 73 18 134/89 95 Room Air 04/08/16 07:32 83 14 97 Room Air 04/07/16 23:43 36.8 73 16 134/88 92 Room Air 04/07/16 20:01 36.8 81 18 122/84 94 Room Air 04/07/16 16:00 Room Air 04/07/16 15:43 36.6 104 20 130/68 95 Room Air Laboratory Results: Last 24 Hours Test 04/08/16 07:47 White Blood Count 9.56 K/uL Red Blood Count 4.06 M/uL Hemoglobin 12.4 g/dL Hematocrit 37.1 % Mean Corpuscular Volume 91.4 fL Mean Corpuscular Hemoglobin 30.5 pg Mean Corpuscular Hemoglobin Concent 33.4 g/dl Platelet Count 257 K/uL Mean Platelet Volume 9.8 fL Neutrophils (%) (Auto) 43.1 % Lymphocytes (%) (Auto) 49.8 % Monocytes (%) (Auto) 4.3 % Eosinophils (%) (Auto) 1.9 % Basophils (%) (Auto) 0.7 % Neutrophils # (Auto) 4.12 K/uL Lymphocytes # (Auto) 4.76 K/uL Monocytes # (Auto) 0.41 K/uL Eosinophils # (Auto) 0.18 K/uL Basophils # (Auto) 0.07 K/uL RDW Standard Deviation 50.2 fL RDW Coefficient of Variation 14.8 % Immature Granulocyte % (Auto) 0.2 % Immature Granulocyte # (Auto) 0.02 K/uL Sodium Level 141 mmol/L Potassium Level 3.6 mmol/L Chloride Level 106 mmol/L Carbon Dioxide Level 25 mmol/L Anion Gap 10.0 mmol/L Blood Urea Nitrogen 14 mg/dl Creatinine 0.76 mg/dl Est Creatinine Clear Calc Drug Dose 101.7 ml/min Estimated GFR () 111.4 Estimated GFR (Non- 96.1 BUN/Creatinine Ratio 18.2 Random Glucose 78 mg/dl Calcium Level 8.2 mg/dl Magnesium Level 2.5 mg/dl
[2016-04-08] MEDS ORDERED: AMOX875T PO (15:00)
--- NOTE | 2016-04-08 15:05 | Discharge Instructions ---
Discharge Instructions Admission Reason for Admission: Left Lower Lobe Pneumonia,Tachycardia Discharge Discharge Diagnosis / Problem: Left lower lobe pneumonia, health care associated, sinus tachycardia Discharge Goals Goal(s): Decrease discomfort, Improve function, Improve disease control Activity Recommendations Activity Limitations: resume your previous activity Lifting Limitations: none Exercise/Sports Limitations: as tolerated May Resume Sexual Activity: when tolerated Shower/Bathe: no limitations Driving or Machine Use: no limitations . Instructions / Follow-Up Instructions / Follow-Up Medications: - AUGMENTIN: complete 7 more days for a total of 10 days coverage, do not stop early Summary: you have health care associated pneumonia, the Levaquin you took would have covered any atypical bacteria. You were treated with Vancomycin while admitted but according to CDC guidelines the negative MRSA nasal swab is enough to r/o MRSA pneumonia and therefor you do not require further MRSA coverage. Pulmonary recommend 7 more days of Augmentin. Continue to use ISB and flutter valve. Get rest and stay well hydrated and nourished the next several days. In regards to your tachycardia, your HR has been in the 70-80's consistently today without the use of Cardizem. The CT of the chest ruled out a PE. Likely due to increased adrenergic (adrenaline) activity with the infection and possibly some anxiety. Your HR was actually normal when sleeping and would rise when you woke up the past 2 days. TSH was checked and was normal thus ruling out hyperthyroidism. FOLLOW UP - please call the office of Dr. Cardozo to arrange a follow up visit within one week of hospitalization, she will have a copy of the d/c summary Current Hospital Diet Patient's current hospital diet: Regular Diet Discharge Diet Recommended Diet: Regular Diet Pending Studies Studies pending at discharge: no Laboratory Results Last Resulted CBC 04/08/16 07:47 Red Blood Count 4.06, Mean Corpuscular Volume 91.4, Mean Corpuscular Hemoglobin 30.5, Mean Corpuscular Hemoglobin Concent 33.4, Mean Platelet Volume 9.8, Neutrophils (%) (Auto) 43.1, Lymphocytes (%) (Auto) 49.8, Monocytes (%) (Auto) 4.3, Eosinophils (%) (Auto) 1.9, Basophils (%) (Auto) 0.7, Neutrophils # (Auto) 4.12, Lymphocytes # (Auto) 4.76, Monocytes # (Auto) 0.41, Eosinophils # (Auto) 0.18, Basophils # (Auto) 0.07 Last Resulted BMP 04/08/16 07:47 Work Instructions Return To Work: 2 days Medical Emergencies . Who to Call and When: Medical Emergencies: If at any time you feel your situation is an emergency, please call 911 immediately. . Non-Emergent Contact Non-Emergency issues call your: Primary Care Provider Call Non-Emergent contact if: you have a fever, you have any medication questions . . "Provider Documentation" section prepared by Sanchez Gonzalez. VTE Core Measure Inpt VTE Proph given/why not?: SCD's [place] Drug Monitoring Program Search Results: no issues identified
[2016-04-08 15:16] VITALS: BP 125/86; PULSE 88; TEMP 36.6; O2SAT 96
[2016-04-09] MEDS ORDERED: VANCOMYCIN TROUGH ONE (05:30)
--- NOTE | 2016-04-09 08:56 | Discharge Summary ---
Discharge Summary Admission Date: Apr 05, 2016 at 18:15 Discharge Date: Apr 08, 2016 Discharge Disposition: Home Principal Diagnosis: Health care associated pneumonia Problems/Secondary Diagnoses: Dyspnea Sinus tachycardia Immunizations: Have You Had Influenza Vaccine: No History of Tetanus Vaccine?: Unknown History of Pneumococcal: No History of Hepatitis B Vaccine: No Procedures: CT chest - no PE, + left lower lobe infiltrate Consultations: Pulmonology Medication Reconciliation New Medications: Amoxicillin & Pot Clavulanate (Augmentin 875-125 mg) 1 Tab Tab 1 TAB PO BID for 7 Days, #14 TAB Continued Medications: Benzonatate (Tessalon Perles) 100 Mg Cap 100 MG PO Q4 PRN for Cough, CAP Duloxetine HCl (Cymbalta) 30 Mg Cap 30 MG PO DAILY, CAP 2 Refills Hydrochlorothiazide (Hydrochlorothiazide) 25 Mg Tab 25 MG PO DAILY Trazodone Hcl (Desyrel) 150 Mg Tab 200 MG PO HS, TAB Discontinued Medications: Levofloxacin (Levaquin) 500 Mg Tab 500 MG PO DAILY, TAB Discharge Exam Patient feeling better, moving more air, HR actually normal all day without the use of Cardizem. Initially going to keep in the hospital but after further discussion with pulmonology they felt she could go home on Augmentin, no need for further MRSA coverage since nasal swab was negative. Review of Systems: Constitutional: + fatigue, No chills, No fever, No problem reported, No sweats, No weakness, No weight loss Eyes: No diplopia, No discharge, No eye pain, No problem reported, No redness, No worsening of vision ENT: No dental problems, No hearing loss, No nasal symptoms, No problem reported, No sore throat, No tinnitus, No trouble swallowing, No unusual epistaxis Respiratory: + dyspnea on exertion, No cough, No dyspnea at rest, No hemoptysis, No problem reported, No shortness of breath, No sputum, No wheezing Cardiovascular: No PND, No chest pain, No claudication, No edema, No orthopnea, No palpitations, No problem reported Abdomen: No GI bleeding, No constipation, No diarrhea, No nausea, No pain, No problem reported, No vomiting Musculoskeletal: No calf pain, No joint pain, No muscle pain, No problem reported, No swelling Genitourinary - Female: No dysuria, No urinary frequency, No urinary incontinence, No urinary urgency Neurologic: No balance problems, No memory loss, No numbness/tingling, No paralysis, No problem reported, No vertigo, No weakness Psychiatric: No anhedonism, No anxiety, No depression symptoms, No insomnia , No problem reported, No substance abuse Endocrine: No excessive thirst, No excessive urination, No fatigue, No problem reported Hematologic / Lymphatic: No abnormal bleeding/bruising, No clotting problems , No night sweats, No problem reported, No swollen lymph nodes Integumentary: No bleeding, No color change, No itch, No new/changing skin lesions, No problem reported, No rash Physical Exam: General Appearance: WD/WN, no apparent distress Eyes: normal inspection, EOMI, sclerae normal ENT: normal ENT inspection, hearing grossly normal, pharynx normal Neck: supple, no adenopathy, no JVD, trachea midline Respiratory/Chest: chest non-tender, lungs clear, normal breath sounds, no respiratory distress, no accessory muscle use Cardiovascular: regular rate, rhythm, no edema, no gallop, no JVD, no murmur , normal peripheral pulses Abdomen / GI: normal bowel sounds, non tender, soft, no organomegaly Extremities: normal inspection, no calf tenderness, normal capillary refill , no pedal edema, normal range of motion 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, no motor/sensory deficits , alert, normal mood/affect, normal reflexes, oriented x 3 Skin: normal color, warm/dry, no rash Lymphatic: no adenopathy Hospital Course 45 yo female with dyspnea, productive cough, tachycardia and chills/sweats despite 9 days of Levaquin 500mg daily 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, Zosyn and Levaquin continue Zosyn, added back Vancomycin for MRSA coverage, flutter valve, bedside spirometer, ambulate in halls stop steroids since there is no wheezing, no h/o bronchitis or asthma pulm consult appreciated since MRSA nasal swab was negative, CDC guidelines indicate no further coverage will d/c on Augmentin 875mg BID x 7 more days, follow up with PCP Tachycardia: unclear etiology, not taking Albuterol, no signs of hypoxia, doubt this is due to pneumonia, no pain that would be driving HR could be anxiety, will make Ativan available PRN, HR is normal when sleeping TSH normal HR lower today when awake, continues to be in the 70's while sleeping so suspect increased adrenergic activity, anxiety playing a role HTN: can resume HCTZ Insomnia--continue trazodone 200 mg by mouth at bedtime. Depression--continue duloxetine 30 mg by mouth daily. Headache--we'll have available Tylenol when necessary, tramadol when necessary, morphine IV when necessary. Vaginal candidiasis -- Diflucan 150mg PO x 1 will d/c to home with PCP follow up in one week can RTW in 2 days Total Time Spent: Greater than 30 minutes This includes examination of the patient, discharge planning, medication reconciliation, and communication with other providers. Discharge Instructions Please refer to the electronic Patient Visit Report (Discharge Instructions) for additional information. Follow-Up Dr. Cardozo in one week Additional Copies To Michelle Cardozo MD
== END 2016-04-08 15:36 | disposition home or self-care (01) | DRG 195 ==
LOC: ENRESERVTM → ENRESERVDT → C.EDB 15:18 → C.MSICU 18:15 → C.4E 04-07 10:53
PROVIDERS: ADMIT Hospitalist; ATTEND Internal Medicine
DX: J18.9 Pneumonia, unspecified organism (principal); F32.9 Major depressive disorder, single episode, unspecified; I10 Essential (primary) hypertension; B37.3 Candidiasis of vulva and vagina; E86.1 Hypovolemia; R00.0 Tachycardia, unspecified; R06.89 Other abnormalities of breathing; G47.00 Insomnia, unspecified; R51 Headache; Z86.69 Personal history of other diseases of the nervous system and sense organs; Z79.899 Other long term (current) drug therapy

== ENCOUNTER → 2016-04-15 | Outpatient (CLI) | payer OTHER ==
[~2016-04-15] MED LIST changes: +AMOX875T PO; +BENZ100C84 PO; +CYM/30 PO; +HYDR25TA5 PO; -OXYC-57 PO; -SENNTAB23 PO
--- NOTE | 2016-04-15 13:31 | DIAGNOSTIC IMAGING REPORT ---
TWO VIEW CHEST CLINICAL HISTORY: Pneumonia. FINDINGS: PA and lateral chest radiographs are compared to study dated 03/28/2016 and correlated with chest CT dated 04/05/2016. The cardiomediastinal silhouette is unremarkable. Minimal patchy airspace opacities are seen at the left lung base. This likely represents pneumonia when correlated with a 04/05/[address] The lungs are otherwise clear. No pleural effusion or pneumothorax is seen. The bony thorax appears intact. IMPRESSION: 1. Minimal left basilar airspace opacities are identified. This likely represents pneumonia when correlated with the 04/05/2016 CT scan. 2. The right lung appears clear. No pleural effusion is identified. Electronically signed by: Jeramy Aguiar M.D. 04/15/2016 1:29 PM Dictated Date/Time: 04/15/2016 1:27 PM
== END | disposition home or self-care (01) ==
LOC: C.RAD1850 12:53
PROVIDERS: ATTEND Family Medicine
DX: J18.9 Pneumonia, unspecified organism (principal)

== ENCOUNTER → 2016-04-21 | Outpatient (CLI) | payer OTHER ==
[~2016-04-21] MED LIST changes: -AMOX875T PO
[2016-04-21 17:23] LABS: BASO % 0.3 %; BASO ABS # 0.03 K/uL (0-0.2); COMPLETE YES; EOS % 0.1 %; HEMATOCRIT 41.2 % (37-47); IG% 0.2 %; LYMPH % 15.2 %; LYMPH ABS # 1.57 K/uL (1.2-3.4); MEAN CELL VOLUME 92.6 fL (80-100); MEAN CORPUSCULAR HEMOGLOBIN 30.3 pg (25-34); MEAN CORPUSCULAR HGB CONC 32.8 g/dl (32-36); MEAN PLATELET VOLUME 10.2 fL (7.4-10.4); MONO % 1.8 %; NEUT % 82.4 %; PLATELET COUNT 333 K/uL (130-400); RED BLOOD COUNT 4.45 M/uL (4.2-5.4); WHITE BLOOD COUNT 10.31 K/uL (4.8-10.8)
[2016-04-21 17:38] LABS: INR 0.9 (0.9-1.1); PARTIAL THROMBOPLASTIN RATIO 1.1
[2016-04-21 17:40] LABS: ALT/SGPT 23 U/L (12-78); AST/SGOT 5 U/L (15-37); BLOOD UREA NITROGEN 17 mg/dl (7-18); BUN/CREATININE RATIO 19.9 (10-20); CALCIUM 8.8 mg/dl (8.5-10.1); CARBON DIOXIDE 29 mmol/L (21-32); CHLORIDE 103 mmol/L (98-107); CREATININE 0.87 mg/dl (0.60-1.20); GLUCOSE 108 mg/dl (70-99); POTASSIUM 3.7 mmol/L (3.5-5.1); SODIUM 140 mmol/L (136-145)
[2016-04-21 17:42] LABS: ALB/GLOB RATIO 1.2 (0.9-2); ALKALINE PHOSPHATASE 60 U/L (45-117)
[2016-04-23 19:33] LABS: BORDETELLA PERTUSSIS SOURCE Nasal Swab
== END | disposition home or self-care (01) ==
LOC: C.LABBFT 12:43
PROVIDERS: ATTEND Internal Medicine Critical Care Medicine
DX: J45.909 Unspecified asthma, uncomplicated (principal); R06.00 Dyspnea, unspecified; R05 Cough

== ENCOUNTER → 2016-05-04 | Day surgery (SDC) | payer OTHER ==
--- NOTE | 2016-05-03 16:18 | History and Physical ---
History & Physical Date May 03, 2016. Chief Complaint Sub-Acute Cough with LLL posterior infiltrate on CT History of Present Illness The patient is a 45 year old female with complaints of follow-up of subacute cough: Patient initially noted to be ill with cough and URI type symptoms around of 2015. She was initially treated with Levaquin but her signs and symptoms progressed until she required admission to [facility]. She was treated with Zosyn and vancomycin in sent home on Augmentin. She also received high-dose IV steroids but last week return to clinic with continuation of her chronic cough. We tried a steroid taper over the last 7 days but she continued have chronic cough with no change in her signs or symptoms. Past Medical/Surgical History Medical Problems: (1) HTN (hypertension) (2) Left lower lobe pneumonia (3) Tachycardia Surgical Problems: (1) H/O wisdom tooth extraction Additional History Hepatic Disease: No Endocrine Disorder: No Kidney Disease: No Hypertension: No Heart Disease: No Bleeding Tendencies: No Infectious Diseases: No Allergies Coded Allergies: No Known Allergies (Unverified , 04/05/16) Home Medications Scheduled Duloxetine HCl (Cymbalta), 30 MG PO DAILY Hydrochlorothiazide (Hydrochlorothiazide), 25 MG PO DAILY Trazodone Hcl (Desyrel), 200 MG PO HS Scheduled PRN Benzonatate (Tessalon Perles), 100 MG PO Q4 PRN for Cough Physical Examination Skin: warm/dry, no rash Eyes: normal inspection, EOMI, sclerae normal ENT: normal ENT inspection, pharynx normal Head: normocephalic, atraumatic Neck: supple, no adenopathy, trachea midline Respiratory/Chest: + pertinent finding (mild wheezing bilaterally ) Cardiovascular: regular rate, rhythm, no edema, no murmur Abdomen / GI: normal bowel sounds, non tender Back: normal inspection Extremities: normal inspection, normal range of motion Genitourinary - Female: external genitalia normal, normal pelvic exam Neurologic/Psych: no motor/sensory deficits, alert, normal reflexes, oriented x 3 Diagnosis Sub-Acute Cough with LLL infiltrate ASA Classification: ASA Class I Plan of Treatment Bronchoscopy with BAL LLL
[~2016-05-04] VITALS: Ht 165.1 cm; Wt 84.0 kg
[2016-05-04] VITALS (12 sets, daily range): BP systolic 98–160; BP diastolic 64–116; PULSE 70–111; TEMP 36.3–36.5; O2SAT 93–99; Ht 165.1 cm; Wt 84.0 kg
[~2016-05-04] MED LIST changes: +FENTANYL CITRATE INJ 50 MCG/1 ML 2 ML VIAL IV ONE; +FENTANYL CITRATE INJ 50 MCG/1 ML 2 ML VIAL IV SCH; +LEVALBUTEROL 1.25MG/3ML NEB INH ONE; +LIDOCAINE 4% W/AFRIN NASAL SOLN 4ML ONE; +LIDOCAINE HCL 2% LOCAL 50ML VIAL INFIL ONE; +MIDAZOLAM HCL 5 MG/ML 1 ML VIAL IV ONE; +MIDAZOLAM HCL 5 MG/ML 1 ML VIAL IV SCH; +NURSING VERBAL MED ORDER ONE
--- NOTE | 2016-05-04 07:25 | History & Physical Bridge Note ---
H&P Re-Evaluation Bridge Note: I have examined the patient, reviewed the History & Physical and in the interval since the performance of the History & Physical I have noted the following changes of clinical significance: No changes noted
--- NOTE | 2016-05-04 07:26 | Procedure Note ---
Pre-Mod Sedation Assessment General Date of Moderate Sedation: May 04, 2016. Pre-Sedation Airway Assessment Smoking Status: Never Smoker Mallampati Classification: Class I ASA Classification: Class I Procedure Planning Contraindications-for Mod Sed: None Yes Notes The planned sedation has been discussed with the patient and consent obtained. I have identified the patient, determined the appropriateness of sedation and have assessed the patient immediately prior to the procedure. All medicine(s) and interventions are by my order.
--- NOTE | 2016-05-04 11:05 | Discharge Instructions ---
Discharge Instructions Admission Reason for Admission: Persistent Cough, Sob, Asthmatic Bronchitis Discharge Discharge Diagnosis / Problem: Same Discharge Goals Goal(s): Learn about illness, Diagnostic testing Activity Recommendations Activity Limitations: resume your previous activity . Instructions / Follow-Up Instructions / Follow-Up ACTIVITY RECOMMENDATIONS: * Rest today, resume normal activity tomorrow. * Do not drive today. SPECIAL CARE INSTRUCTIONS: * Call your physician if you experience any chest or shoulder pain, fever, coughing, spitting up blood (more than 2 teaspoons) or excessive shortness of breath. * Remove dressing from IV site (where needle was placed into the vein) after 2 hours. Apply a warm, moist compress to site if irritation occurs. Call physician if site becomes red or painful to touch. * You may eat 4 hours after the completion of your procedure * Resume all usual medications as previously directed FOLLOW UP VISIT: * Keep any scheduled doctor appointments. Current Hospital Diet Patient's current hospital diet: Discharge Diet Recommended Diet: Regular Diet Procedures Procedures Performed: Bronchoscopy Pending Studies Studies pending at discharge: yes List of pending studies: Bronchoscopy washings Medical Emergencies . Who to Call and When: Medical Emergencies: If at any time you feel your situation is an emergency, please call 911 immediately. . Non-Emergent Contact Non-Emergency issues call your: Primary Care Provider . . "Provider Documentation" section prepared by Adair Kowalski PA-C. VTE Core Measure Inpt VTE Proph given/why not?: Treatment not indicated (Outpatient procedure.)
--- NOTE | 2016-05-04 11:07 | OPERATIVE REPORT ---
DATE OF OPERATION: 05/04/2016 PROCEDURE: Fiberoptic bronchoscopy with bronchoalveolar lavage. INDICATIONS: Persistent cough/chest congestion, left lower lobe infiltrate. ANESTHESIA PREOPERATIVELY: None. ANESTHESIA DURING PROCEDURE: 70 mg IV Versed, 50 mcg IV fentanyl, 20 mL 2% Xylocaine spray above and below the cords, 4% viscous Xylocaine intranasally. PROCEDURE: Fiberoptic bronchoscope was inserted into the left naris with minimal difficulty and passed to the level of the true vocal cords. Cords appear to approximate normally with phonation without evidence of lesions or paralysis. Mucopurulent sinus drainage was seen emanating from the sinus ostia. The cords were anesthetized with 2% Xylocaine spray and the scope was then introduced in the trachea and right and left tracheobronchial tree. The mary was sharp. The right main stem bronchus was found to be free of endobronchial lesions. The right upper lobe, the apical posterior, anterior segments, bronchus intermedius, right middle lobe and the medial and lateral segments and all basilar segments right lower lobe were found to be free of endobronchial lesions. Mucus pitting was with bronchial clefts and crypts were visible throughout the right tracheobronchial tree. Left tracheobronchial tree was explored and no endobronchial lesion was seen. A moderate amount of mucopurulent secretion lavaged from left lower lobe until clear and the aspirate sent for appropriate studies. Left upper lobe, lingular subdivision and left lower lobe were found to be free of endobronchial lesions down to subsegmental bronchi with mucus pitting with bronchial clefts and crypts visible throughout the left tracheobronchial tree. No brushings or biopsies were deemed necessary. The procedure was terminated and the patient was given a nebulizer treatment with Xopenex 1.25 mg then transferred to the medical treatment unit hemodynamically stable with no signs of respiratory compromise. Will await microbiological and cytologic examination of the bronchial washings. I attest to the content of the Intraoperative Record and any orders documented therein. Any exceptio ns are noted below.
[2016-05-28 13:22] LABS: HERPES SIMPLEX CULT SOURCE RESPIRATORY-LLL BRON; HERPES SIMPLEX VIRUS CULT NOT ISOLATED (NOT ISOLATED)
== END | disposition home or self-care (01) ==
LOC: C.ACU 07:21
PROVIDERS: ATTEND Internal Medicine Pulmonary Disease
DX: J45.901 Unspecified asthma with (acute) exacerbation (principal); R05 Cough; I10 Essential (primary) hypertension; Z87.01 Personal history of pneumonia (recurrent)

== ENCOUNTER → 2016-05-11 | Outpatient (CLI) | payer OTHER ==
[~2016-05-11] MED LIST changes: -FENTANYL CITRATE INJ 50 MCG/1 ML 2 ML VIAL IV ONE; -FENTANYL CITRATE INJ 50 MCG/1 ML 2 ML VIAL IV SCH; -LEVALBUTEROL 1.25MG/3ML NEB INH ONE; -LIDOCAINE 4% W/AFRIN NASAL SOLN 4ML ONE; -LIDOCAINE HCL 2% LOCAL 50ML VIAL INFIL ONE; -MIDAZOLAM HCL 5 MG/ML 1 ML VIAL IV ONE; -MIDAZOLAM HCL 5 MG/ML 1 ML VIAL IV SCH; -NURSING VERBAL MED ORDER ONE; +OPTIRAY 320 IV PRN
--- NOTE | 2016-05-11 12:26 | DIAGNOSTIC IMAGING REPORT ---
CHEST CT WITH CONTRAST CT DOSE: 315.99 mGy.cm HISTORY: Lung nodules PULMONARY NODULES, MEDIASTINAL LYMPHADENOPATHY TECHNIQUE: Multiaxial CT images of the chest were performed following the intravenous administration of contrast. COMPARISON: FINDINGS: Lungs are now considered clear. Nodularity and infiltrative change left lung base have completely resolved. There is no significant residual nodularity or infiltrative change. There is no significant mediastinal or hilar adenopathy. Axillary regions are unremarkable. Limited evaluation the upper abdomen is unremarkable as well. IMPRESSION: Normal CT of the chest. All findings previously described have resolved Electronically signed by: Allen Grace M.D. 05/11/2016 12:25 PM Dictated Date/Time: 05/11/2016 12:20 PM
== END | disposition home or self-care (01) ==
LOC: C.CTS 11:57
PROVIDERS: ATTEND Internal Medicine Critical Care Medicine
DX: R91.8 Other nonspecific abnormal finding of lung field (principal)

== ENCOUNTER → 2016-06-10 | Outpatient (CLI) | payer OTHER ==
[~2016-06-10] MED LIST changes: -OPTIRAY 320 IV PRN
--- NOTE | 2016-06-10 15:55 | MAMMOGRAPHY REPORT ---
BILATERAL DIGITAL SCREENING MAMMOGRAM TOMOSYNTHESIS WITH CAD: 06/10/2016 CLINICAL HISTORY: Routine screening. Patient has no complaints. TECHNIQUE: Breast tomosynthesis in addition to standard 2D mammography was performed. Current study was also evaluated with a Computer Aided Detection (CAD) system. COMPARISON: Prior outside mammograms dated 05/04/2013 from [facility]. BREAST COMPOSITION: There are scattered areas of fibroglandular density in both breasts. FINDINGS: No suspicious masses, calcifications, or areas of architectural distortion are noted in e ither breast. There has been no significant interval change compared to prior exams. IMPRESSION: ACR BI-RADS CATEGORY 1: NEGATIVE There is no mammographic evidence of malignancy. A 1 year screening mammogram is recommended. The p atient will receive written notification of the results. Approximately 10% of breast cancers are not detected with mammography. A negative mammographic repor t should not delay biopsy if a clinically suggestive mass is present. Pauline Liriano M.D. ah/:06/10/2016 14:49:37 Instructional Developer: Chelo HALL(Seema)(M), [facility] letter sent: Normal 1/2 BI-RADS Code: ACR BI-RADS Category 1: Negative
== END | disposition home or self-care (01) ==
LOC: C.MAMM 13:06
PROVIDERS: ATTEND Family Medicine
DX: Z12.31 Encounter for screening mammogram for malignant neoplasm of breast (principal)

== ENCOUNTER → 2016-11-22 | Outpatient (CLI) | payer OTHER ==
[2016-11-22 10:17] LABS: BASO % 0.6 %; BASO ABS # 0.04 K/uL (0-0.2); COMPLETE YES; EOS % 1.9 %; HEMATOCRIT 38.9 % (37-47); IG% 0.3 %; LYMPH % 29.4 %; LYMPH ABS # 1.96 K/uL (1.2-3.4); MEAN CELL VOLUME 92.2 fL (80-100); MEAN CORPUSCULAR HEMOGLOBIN 31.5 pg (25-34); MEAN CORPUSCULAR HGB CONC 34.2 g/dl (32-36); MEAN PLATELET VOLUME 9.3 fL (7.4-10.4); MONO % 4.8 %; PLATELET COUNT 301 K/uL (130-400); RED BLOOD COUNT 4.22 M/uL (4.2-5.4); WHITE BLOOD COUNT 6.67 K/uL (4.8-10.8)
[2016-11-22 10:39] LABS: BLOOD UREA NITROGEN 13 mg/dl (7-18); BUN/CREATININE RATIO 15.5 (10-20); CALCIUM 8.5 mg/dl (8.5-10.1); CARBON DIOXIDE 31 mmol/L (21-32); CHLORIDE 102 mmol/L (98-107); CREATININE 0.85 mg/dl (0.60-1.20); GLUCOSE 81 mg/dl (70-99); POTASSIUM 3.6 mmol/L (3.5-5.1); SODIUM 137 mmol/L (136-145)
[2016-11-22 10:51] LABS: CHOLESTEROL 210 mg/dl (0-200); CHOLESTEROL/HDL RATIO 4.8; HDL CHOLESTEROL 44 mg/dl; LDL CHOLESTEROL CALCULATED 147 mg/dl; TRIGLYCERIDES 94 mg/dl (0-150); VERY LOW DENSITY LIPOPROT CALC 19 mg/dl
== END | disposition home or self-care (01) ==
LOC: C.LAB 09:50
PROVIDERS: ATTEND Family Medicine
DX: Z00.00 Encounter for general adult medical examination without abnormal findings (principal)

== ENCOUNTER → 2016-12-02 | Outpatient (CLI) | payer OTHER ==
[~2016-12-02] MED LIST changes: +GADAVIST IV PRN
--- NOTE | 2016-12-02 08:12 | DIAGNOSTIC IMAGING REPORT ---
LUMBAR SPINE COMBINATION CLINICAL HISTORY: 46 years-old Female with LUMBAR RADICULOPATHY. Increasing low back pain with lumbar radiculopathy. History of previous partial discectomy in May 2015. Prior right hemilaminectomy at L4-L5. COMPARISON: Lumbar spine MR 09/05/2015. TECHNIQUE: Multiplanar, multi sequence MRI of the lumbar spine was performed both with and without the use of 8 mL Gadavist FINDINGS: The large [id number] webfocus developer localizer images demonstrate no gross abnormality. There is unchanged stepwise retrolisthesis of approximately 3 mm of L2 on L3, L3 on L4 and L4 on L5 which is unchanged and likely secondary to associated facet arthropathy as described below. Multilevel intervertebral disc space narrowing is also seen at these levels with mild spondylitic spurring. There is no focal bone marrow edema or compression deformity. Signal within the cord is within normal limits. Conus medullaris terminates at the L1 level. Imaged intrapelvic, intra-abdominal and paraspinal structures demonstrate no acute abnormality. Micrometallic artifact is seen within the soft tissues posterior to L3-L5. T12-L1: No central canal or neural foraminal stenosis. No change. L1-L2: No central canal or neural foraminal stenosis. No change. L2-L3: Mild intervertebral disc space narrowing with circumferential annular disc bulge, mild facet arthropathy with ligamentum flavum redundancy and small facet effusions. There is flattening of the ventral thecal sac without central canal or foraminal narrowing. No change. L3-L4: Mild intervertebral disc space narrowing with minimal posterior spondylitic spurring, mild facet arthropathy with small facet effusions and ligamentum flavum redundancy. Broad-based posterior disc bulge flattens the ventral thecal sac without central canal or foraminal narrowing. No change. L4-L5: Mild intervertebral disc space narrowing and mild facet arthropathy with facet effusions, ligamentum flavum redundancy and minimal posterior spondylitic spurring. Small circumferential annular disc bulge is present with annular fissure and focal disc extrusion within the right paracentral space and right lateral recess measuring 6 x 8 x 4 mm in AP, transverse and craniocaudal dimensions. This abuts and mildly displaces the adjacent L5 nerve root causing moderate right lateral recess and mild inferior right foraminal narrowing. Central canal and left foramen are patent. This finding has progressed from prior study. Prior right hemilaminectomy. There is persistent mild epidural thickening and enhancement at the L4-L5 level with minimal enhancement in the region of the right foramen, likely postsurgical granulation tissue, also seen on prior study. No new areas of enhancement are identified. L5-S1: Moderate intervertebral disc space narrowing with mild facet arthropathy, small facet effusions and ligamentum flavum redundancy. Minimal posterior spondylotic spurring with circumferential annular disc bulge and central focal disc protrusion. There is also a small annular fissure. There is mild flattening of ventral thecal sac without central canal narrowing. There is mild bilateral foraminal stenosis. No change. IMPRESSION: 1. Prior right hemilaminectomy with persistent epidural soft tissue thickening and enhancement at this level as above suggesting postsurgical granulation tissue. 2. Progressive discogenic degeneration at L4-L5 with right paracentral/right lateral recess disc extrusion abutting and mildly displacing the adjacent right L5 nerve root causing moderate right lateral recess and mild right foraminal narrowing. 3. Additional discogenic changes and facet arthropathy as above at L2-L3, L3-L4 and L5-S1. 4. No focal bone marrow edema or fracture. The above report was generated using voice recognition software. It may contain grammatical, syntax or spelling errors. Electronically signed by: Jeovanny Capone M.D. 12/02/2016 8:11 AM Dictated Date/Time: 12/02/2016 7:53 AM
== END | disposition home or self-care (01) ==
LOC: C.MRI 06:43
PROVIDERS: ATTEND Orthopaedic Surgery Orthopaedic Surgery of the Spine
DX: M51.16 Intervertebral disc disorders with radiculopathy, lumbar region (principal); M46.96 Unspecified inflammatory spondylopathy, lumbar region; M46.97 Unspecified inflammatory spondylopathy, lumbosacral region

== ENCOUNTER 2017-02-05 16:01 | Emergency (ER) | payer OTHER ==
[~2017-02-05] VITALS: Ht 165.1 cm; Wt 93.0 kg
[~2017-02-05 16:01] MED LIST changes: -BENZ100C84 PO; +CELE1CAP30 PO; +DSY100 PO; -GADAVIST IV PRN; +PRED50TA PO; +PREG75CA PO; -TRAZ150T64 PO
[2017-02-05 16:07] VITALS: TEMP 36.7; Ht 165.1 cm; Wt 93.0 kg
[2017-02-05] MEDS ORDERED: DiphenhydrAMINE HCL 50 MG/ML VIAL IV STA (16:19)
[2017-02-05] MEDS ORDERED: RANITIDINE HCL 50 MG/100 ML D5W IV STA (16:19)
[2017-02-05] MEDS ORDERED: ALBUTEROL 0.083% NEBU SOLN 3 ML VIAL INH STA (16:19)
[2017-02-05] MEDS ORDERED: METHYLPREDNISOLONE 125 MG VIAL IV STA (16:19)
--- NOTE | 2017-02-05 16:28 | EMERGENCY ROOM VISIT NOTE ---
History Report prepared by Tripp: Jerel Bailey Under the Supervision of: Dr. Tereso Bryson M.D. First contact with patient: 16:12 Chief Complaint: SHORTNESS OF BREATH Stated Complaint: SOB History of Present Illness The patient is a 46 year old female who presents to the Emergency Room with complaints of worsening shortness of breath beginning yesterday. The patient states she recently started Lyrica and Celebrex. She reports she was in the ED for facial swelling and shortness of breath yesterday, and she thinks the medication is the cause. The patient notes she stopped both of the medication. She states it is hard to breathe and talk. The patient reports after she left the ED yesterday, her shortness of breath worsened. She notes she has been taking prednisone and Benadryl at home, and the last time she took the medication was 9.5 hours ago. The patient denies rash, nausea, vomiting, coughing, fever, abdominal pain, leg swelling, and a history of allergies. She states she also takes hydrochlorothiazide. Source of History: patient Onset: yesterday Position: other (global) Quality: other (sob) Timing: worsening Associated Symptoms: No fevers, No cough, No nausea, No vomiting, No abdominal pain, No rash Note: Associated symptoms: hard to talk Denies: leg swelling Review of Systems See HPI for pertinent positives & negatives. A total of 10 systems reviewed and were otherwise negative. Past Medical & Surgical Medical Problems: (1) HTN (hypertension) (2) Left lower lobe pneumonia (3) Tachycardia Surgical Problems: (1) H/O wisdom tooth extraction Old medical records were reviewed. Nurse's notes were reviewed and I agree with. Family History Cancer Diabetes mellitus Heart disease Hypertension Social History Smoking Status: Never Smoker Alcohol Use: none Drug Use: none Marital Status: Housing Status: lives with family Occupation Status: employed Current/Historical Medications Scheduled Duloxetine HCl (Cymbalta), 30 MG PO DAILY Hydrochlorothiazide (Hydrochlorothiazide), 25 MG PO DAILY Prednisone (Prednisone), 50 MG PO DAILY Trazodone HCl (Trazodone HCl), 200 MG PO HS Scheduled PRN Oxycodone/Acetaminophen 5MG/325MG (Percocet 5MG/325MG), 1 TABLET PO Q4H PRN for Pain Allergies Coded Allergies: Celecoxib (Unverified Allergy, Unknown, SOB/SWELLING, 02/05/17) Pregabalin (Unverified Allergy, Unknown, SWELLING/SOB, 02/05/17) Physical Exam Vital Signs Date Time Temp Pulse Resp B/P (MAP) Pulse Ox O2 Delivery O2 Flow Rate FiO2 02/05/17 19:38 85 18 144/100 97 02/05/17 18:15 99 16 147/91 95 Room Air 02/05/17 17:04 Room Air 02/05/17 17:04 94 24 183/90 97 Room Air 02/05/17 16:07 36.7 62 20 139/82 98 Room Air Physical Exam General: Non-ill appearing middle aged female in no acute distress. Mild tachypnea. HEENT: Normal cephalic atraumatic. Pupils are equal round and reactive to light. Extraocular movements are intact. Oropharynx is pink with moist mucous membranes. No swelling of the mouth lips or tongue. No angioedema. Neck: Supple with a midline trachea. No meningeal signs or stiffness, no JVD or bruits. No Stridor. Chest: Clear to auscultation bilaterally. No wheezes or rhonchi. No increased work of breathing. Heart: regular rate and rhythm. Abdomen: Soft nontender, nondistended without rebound guarding or rigidity. Extremities: No cyanosis clubbing or edema. No calf tenderness or assymetry Spine/Back. Non tender to palpation. No CVA tenderness Skin: Good turgor without rashes. Neurologic exam: Cranial nerves two through 12 are intact. Motor and sensation are intact and symmetrical throughout. Medical Decision & Procedures ER Provider Diagnostic Interpretation: Radiology results as stated below per my review and radiologist interpretation: CHEST ONE VIEW PORTABLE HISTORY: 46 years-old Female CHEST PAIN atypical chest pain COMPARISON: Chest radiographs 04/15/2016 TECHNIQUE: Portable upright AP view of the chest FINDINGS: Cardiomediastinal and hilar silhouettes are within normal limits. There is no pneumothorax, pleural effusion, focal airspace consolidation or overt pulmonary edema. The bones of the chest are grossly intact. IMPRESSION: No acute cardiopulmonary process. The above report was generated using voice recognition software. It may contain grammatical, syntax or spelling errors. Electronically signed by: Jeovanny Capone M.D. 02/05/2017 4:58 PM Dictated Date/Time: 02/05/2017 4:57 PM SOFT TISSUE NECK WITHOUT HISTORY: 46 years-old Female eval for airway swelling acute airway swelling. Atypical chest pain COMPARISON: Chest CT and chest radiograph of same day TECHNIQUE: Multiple axial CT images of the soft tissues of the neck were obtained following the intravenous administration of 93 mL Optiray 320. A dose lowering technique was used consistent with the principals of ALARA. FINDINGS: The nasopharynx, oropharynx and hypopharynx are patent. [place] tonsils. Normal in size. No peritonsillar abscess. The vallecula and piriform sinuses are maintained. The glottis and subglottic airway are unremarkable. The epiglottis and aryepiglottic vallecula are unremarkable. No pathologic adenopathy about the neck identified. The parotid, some mandibular and sublingual glands are unremarkable. Thyroid is homogeneous without focal nodule. Air noted within the right subclavian vein, likely from IV access. Orbits are symmetric. No acute intracranial abnormality identified. Mild polypoid mucosal thickening of the medial wall inferior right maxillary antrum. Mild ethmoid mucosal thickening also noted. Mastoid air cells are clear. Bones appear intact. No significant degenerative changes of the spine. Imaged lung apices are clear. IMPRESSION: 1. No acute abnormality identified involving the soft tissues of the neck. 2. No peritonsillar abscess or retropharyngeal soft tissue swelling. 3. Mild polypoid mucosal thickening of the right maxillary antrum. The above report was generated using voice recognition software. It may contain grammatical, syntax or spelling errors. Electronically signed by: Jeovanny Capone M.D. 02/05/2017 6:57 PM Dictated Date/Time: 02/05/2017 6:51 PM (CHEST FOR PE) ANGIO WITH CLINICAL HISTORY: 46 years-old Female presenting with shortness of breath, clinical concern for pulmonary embolus. TECHNIQUE: Multidetector CT angiography of the chest was performed after administration of intravenous contrast. 3-D volumetric and/or maximum intensity projection (MIP) images were subsequently reconstructed for review. IV contrast: 93 mL of Optiray 320. A dose lowering technique was used consistent with the principles of ALARA (as low as reasonably achievable). COMPARISON: 05/11/2016. CT DOSE (mGy.cm): The estimated cumulative dose is 1158.60 mGy.cm. FINDINGS: Medical Office Rep topogram: Unremarkable. Pulmonary vasculature: The study is adequate for assessment of the pulmonary vascular tree. No filling defect within the pulmonary arteries to suggest embolus. Main pulmonary artery is not enlarged. No flattening of the interventricular septum. No intracardiac intracardiac filling defect. No reflux of contrast into the hepatic veins. Remaining chest: On soft tissue windows, normal thyroid and thoracic inlet. No axillary, supraclavicular, hilar, or mediastinal lymphadenopathy. Normal aorta. Normal heart size. Small pericardial effusion. Trace pleural effusions. Upper abdomen normal. On lung windows, minimal dependent changes likely atelectasis. Triangular solid perifissural 3 mm nodule in the right upper lobe (series 6 image 199). Airways patent. On bone windows, normal osseous structures. IMPRESSION: 1. No evidence of pulmonary embolus. 2. Small pericardial effusion. Electronically signed by: Sami Wolfe M.D. 02/05/2017 6:57 PM Dictated Date/Time: 02/05/2017 6:51 PM Laboratory Results 02/05/17 16:55 Red Blood Count 4.71, Mean Corpuscular Volume 91.3, Mean Corpuscular Hemoglobin 31.0, Mean Corpuscular Hemoglobin Concent 34.0, Mean Platelet Volume 9.7, Neutrophils (%) (Auto) 88.5, Lymphocytes (%) (Auto) 6.7, Monocytes (%) (Auto) 4.2, Eosinophils (%) (Auto) 0.0, Basophils (%) (Auto) 0.1, Neutrophils # (Auto) 15.88, Lymphocytes # (Auto) 1.21, Monocytes # (Auto) 0.75, Eosinophils # (Auto) 0.00, Basophils # (Auto) 0.01 02/05/17 16:55 Test 02/05/17 16:55 02/05/17 17:34 White Blood Count 17.94 K/uL (4.8-10.8) Red Blood Count 4.71 M/uL (4.2-5.4) Hemoglobin 14.6 g/dL (12.0-16.0) Hematocrit 43.0 % (37-47) Mean Corpuscular Volume 91.3 fL (80-100) Mean Corpuscular Hemoglobin 31.0 pg (25-34) Mean Corpuscular Hemoglobin Concent 34.0 g/dl (32-36) Platelet Count 382 K/uL (130-400) Mean Platelet Volume 9.7 fL (7.4-10.4) Neutrophils (%) (Auto) 88.5 % Lymphocytes (%) (Auto) 6.7 % Monocytes (%) (Auto) 4.2 % Eosinophils (%) (Auto) 0.0 % Basophils (%) (Auto) 0.1 % Neutrophils # (Auto) 15.88 K/uL (1.4-6.5) Lymphocytes # (Auto) 1.21 K/uL (1.2-3.4) Monocytes # (Auto) 0.75 K/uL (0.11-0.59) Eosinophils # (Auto) 0.00 K/uL (0-0.5) Basophils # (Auto) 0.01 K/uL (0-0.2) RDW Standard Deviation 47.2 fL (36.4-46.3) RDW Coefficient of Variation 14.1 % (11.5-14.5) Immature Granulocyte % (Auto) 0.5 % Immature Granulocyte # (Auto) 0.09 K/uL (0.00-0.02) Anion Gap 9.0 mmol/L (3-11) Est Creatinine Clear Calc Drug Dose 84.3 ml/min Estimated GFR () 83.4 Estimated GFR (Non- 71.9 BUN/Creatinine Ratio 16.5 (10-20) Calcium Level 9.4 mg/dl (8.5-10.1) Total Bilirubin 0.6 mg/dl (0.2-1) Direct Bilirubin 0.1 mg/dl (0-0.2) Aspartate Amino Transf (AST/SGOT) 12 U/L (15-37) Alanine Aminotransferase (ALT/SGPT) 32 U/L (12-78) Alkaline Phosphatase 73 U/L (45-117) Troponin I < 0.015 ng/ml (0-0.045) Total Protein 8.6 gm/dl (6.4-8.2) Albumin 4.3 gm/dl (3.4-5.0) Lipase 74 U/L (73-393) Bedside D-Dimer > 450 ng/mlFEU (0-450) Laboratory studies as stated above per my review. Medications Administered Medications (Trade) Dose Ordered Sig/Christina Route Start Time Stop Time Status Last Admin Dose Admin Methylprednisolone Sodium Succinate (Solu-Medrol IV) 125 mg NOW STAT IV 02/05/17 16:19 02/05/17 16:21 DC 02/05/17 16:57 125 MG Diphenhydramine HCl (Benadryl Inj) 25 mg NOW STAT IV 02/05/17 16:19 02/05/17 16:21 DC 02/05/17 16:57 25 MG Ranitidine HCl (zANTac IV) 50 mg NOW STAT IV 02/05/17 16:19 02/05/17 16:21 DC 02/05/17 16:57 50 MG Albuterol Sulfate (Ventolin 0.083% 2.5MG/3ML Neb) 2.5 mg NOW STAT INH 02/05/17 16:19 02/05/17 16:21 DC 02/05/17 16:43 2.5 MG ECG Indication: SOB/dyspnea Rate (beats per minute): 89 Rhythm: normal sinus Findings: no acute ischemic change, no ectopy, other (Sinus arrythmia) Comparison ECG Date: 04/05/16 Change: no significant change ED Course 1613: Past medical records reviewed. The patient was evaluated in room C12B, and a complete history and physical examination were performed. 1619: Ordered Albuterol Sulfate 2.5mg INH, Ranitidine HCl 50mg IV, Diphenhydramine HCl 25mg IV, Methylprednisolone Sodium Succinate 125mg IV 1658: I reevaluated the patient. She is getting her nebulizer. 1723: I reevaluated the patient. She is still short of breath, but she is not hypoxic. She state she has been experiencing facial swelling for a week. She notes she has also been short of breath intermittently for a few weeks. 1815: I reevaluated the patient and discussed the risks and benefits of a CT scan. She agrees to the scan and is feeling much better. 1909: Upon reevaluation, the patient is resting comfortably. I discussed the results and treatment plan with her. She verbalized agreement of the treatment plan. The patient was discharged home. Medical Decision Differentials include, but are not limited to; allergic reaction, angioedema, electrolyte or metabolic abnormality. This patient comes in as described above. She is here complaining of shortness of breath. She was seen last evening for possible allergic reaction. She has some facial swelling although that it off about a week although that has resolved. She felt short of breath since last evening and said that that has been going off-and-on for several weeks off and on as well. She has had no cough or fever chills. No trauma. She denies any chest pain. No history of PE or cardiac disease. No rash or nausea or vomiting. IV access established and she was was given albuterol neb. She has some mild tachypnea but but has normal vital signs otherwise no wheezes rhonchi or stridor. Her posterior pharynx is wide open. To cover the possibly for allergic reaction, she was given IV Solu-Medrol, IV Benadryl, IV Zantac. EKG was obtained. She was reassessed frequently. Multiple blood testing was obtained. She was feeling scared feeling better and had no further tachypnea. Her EKG does not suggest acute coronary syndrome or arrhythmia. Her d-dimer was found to be elevated and in light of this, I did a chest CT is no evidence of PE there is a small pericardial effusion but no other abnormalities. I also did a soft tissue of her neck and there is no airway compromise or swelling. Her white count is mildly elevated at 17 which I think is likely from 2 doses of steroids recently. There may be allergic component although talking to her it seems like the symptoms were going on for weeks. I will have her continue the prednisone and continue to use Benadryl if needed I recommend she follow up with her regular doctor Wednesday for recheck and she may need further evaluation by her [employer]. She feels better and back to baseline and will be discharged to home. Medication Reconcilliation Current Medication List: was personally reviewed by me Impression Primary Impression: SOB (shortness of breath) Additional Impression: Allergic reaction Scribe Attestation The scribe's documentation has been prepared under my direction and personally reviewed by me in its entirety. I confirm that the note above accurately reflects all work, treatment, procedures, and medical decision making performed by me. Departure Information Dispostion Home / Self-Care Referrals Michelle Cardozo MD (PCP) Forms HOME CARE DOCUMENTATION FORM, IMPORTANT VISIT INFORMATION Patient Instructions My [facility] Additional Instructions Rest. Drink plenty of fluids. Continue to use the prednisone. May use Benadryl 25-50 mg every 8 hours if needed . Benadryl may make you drowsy and do not take before drinking, driving, working Continue to hold your medications that you are potentially allergic to. Return to the ER if: Worsening of symptoms, facial swelling, shortness of breath, fever or chills, any new problems or concerns Follow-up with your doctor or manager [employer] on Wednesday for recheck Problem Qualifiers
[2017-02-05] MEDS ORDERED: OXYC-57 PO (16:31)
--- NOTE | 2017-02-05 16:59 | DIAGNOSTIC IMAGING REPORT ---
CHEST ONE VIEW PORTABLE HISTORY: 46 years-old Female CHEST PAIN atypical chest pain COMPARISON: Chest radiographs 04/15/2016 TECHNIQUE: Portable upright AP view of the chest FINDINGS: Cardiomediastinal and hilar silhouettes are within normal limits. There is no pneumothorax, pleural effusion, focal airspace consolidation or overt pulmonary edema. The bones of the chest are grossly intact. IMPRESSION: No acute cardiopulmonary process. The above report was generated using voice recognition software. It may contain grammatical, syntax or spelling errors. Electronically signed by: Jeovanny Capone M.D. 02/05/2017 4:58 PM Dictated Date/Time: 02/05/2017 4:57 PM
[2017-02-05 17:06] LABS: BASO % 0.1 %; BASO ABS # 0.01 K/uL (0-0.2); COMPLETE YES; IG% 0.5 %; LYMPH % 6.7 %; LYMPH ABS # 1.21 K/uL (1.2-3.4); MEAN CELL VOLUME 91.3 fL (80-100); MEAN PLATELET VOLUME 9.7 fL (7.4-10.4); MONO % 4.2 %; NEUT % 88.5 %; PLATELET COUNT 382 K/uL (130-400); RED BLOOD COUNT 4.71 M/uL (4.2-5.4); WHITE BLOOD COUNT 17.94 K/uL (4.8-10.8)
[2017-02-05 17:45] LABS: ALT/SGPT 32 U/L (12-78); BLOOD UREA NITROGEN 16 mg/dl (7-18); BUN/CREATININE RATIO 16.5 (10-20); CALCIUM 9.4 mg/dl (8.5-10.1); CARBON DIOXIDE 26 mmol/L (21-32); CHLORIDE 102 mmol/L (98-107); CREATININE 0.96 mg/dl (0.60-1.20); GLUCOSE 122 mg/dl (70-99); POTASSIUM 3.5 mmol/L (3.5-5.1); SODIUM 136 mmol/L (136-145)
[2017-02-05 17:50] LABS: ALKALINE PHOSPHATASE 73 U/L (45-117); AST/SGOT 12 U/L (15-37)
[2017-02-05] MEDS ORDERED: OPTIRAY 320 IV PRN (18:30)
--- NOTE | 2017-02-05 18:58 | DIAGNOSTIC IMAGING REPORT ---
SOFT TISSUE NECK WITHOUT HISTORY: 46 years-old Female eval for airway swelling acute airway swelling. Atypical chest pain COMPARISON: Chest CT and chest radiograph of same day TECHNIQUE: Multiple axial CT images of the soft tissues of the neck were obtained following the intravenous administration of 93 mL Optiray 320. A dose lowering technique was used consistent with the principals of CURLY. FINDINGS: The nasopharynx, oropharynx and hypopharynx are patent. [place] tonsils. Normal in size. No peritonsillar abscess. The vallecula and piriform sinuses are maintained. The glottis and subglottic airway are unremarkable. The epiglottis and aryepiglottic vallecula are unremarkable. No pathologic adenopathy about the neck identified. The parotid, some mandibular and sublingual glands are unremarkable. Thyroid is homogeneous without focal nodule. Air noted within the right subclavian vein, likely from IV access. Orbits are symmetric. No acute intracranial abnormality identified. Mild polypoid mucosal thickening of the medial wall inferior right maxillary antrum. Mild ethmoid mucosal thickening also noted. Mastoid air cells are clear. Bones appear intact. No significant degenerative changes of the spine. Imaged lung apices are clear. IMPRESSION: 1. No acute abnormality identified involving the soft tissues of the neck. 2. No peritonsillar abscess or retropharyngeal soft tissue swelling. 3. Mild polypoid mucosal thickening of the right maxillary antrum. The above report was generated using voice recognition software. It may contain grammatical, syntax or spelling errors. Electronically signed by: Jeovanny Capone M.D. 02/05/2017 6:57 PM Dictated Date/Time: 02/05/2017 6:51 PM
--- NOTE | 2017-02-05 18:59 | DIAGNOSTIC IMAGING REPORT ---
(CHEST FOR PE) ANGIO WITH CLINICAL HISTORY: 46 years-old Female presenting with shortness of breath, clinical concern for pulmonary embolus. TECHNIQUE: Multidetector CT angiography of the chest was performed after administration of intravenous contrast. 3-D volumetric and/or maximum intensity projection (MIP) images were subsequently reconstructed for review. IV contrast: 93 mL of Optiray 320. A dose lowering technique was used consistent with the principles of ALARA (as low as reasonably achievable). COMPARISON: 05/11/2016. CT DOSE (mGy.cm): The estimated cumulative dose is 1158.60 mGy.cm. FINDINGS: Knotting Machine Operator topogram: Unremarkable. Pulmonary vasculature: The study is adequate for assessment of the pulmonary vascular tree. No filling defect within the pulmonary arteries to suggest embolus. Main pulmonary artery is not enlarged. No flattening of the interventricular septum. No intracardiac intracardiac filling defect. No reflux of contrast into the hepatic veins. Remaining chest: On soft tissue windows, normal thyroid and thoracic inlet. No axillary, supraclavicular, hilar, or mediastinal lymphadenopathy. Normal aorta. Normal heart size. Small pericardial effusion. Trace pleural effusions. Upper abdomen normal. On lung windows, minimal dependent changes likely atelectasis. Triangular solid perifissural 3 mm nodule in the right upper lobe (series 6 image 199). Airways patent. On bone windows, normal osseous structures. IMPRESSION: 1. No evidence of pulmonary embolus. 2. Small pericardial effusion. Electronically signed by: Sami Wolfe M.D. 02/05/2017 6:57 PM Dictated Date/Time: 02/05/2017 6:51 PM
[2017-02-05 19:38] VITALS: BP 144/100; PULSE 85; O2SAT 97
== END 2017-02-05 19:38 | disposition home or self-care (01) ==
LOC: C.EDB 16:02 → C.EDC 19:38
DX: R06.02 Shortness of breath (principal); T78.40XA Allergy, unspecified, initial encounter; X58.XXXA Exposure to other specified factors, initial encounter; I10 Essential (primary) hypertension; Z87.01 Personal history of pneumonia (recurrent); Z98.818 Other dental procedure status; Z83.3 Family history of diabetes mellitus; Z82.49 Family history of ischemic heart disease and other diseases of the circulatory system; Z79.899 Other long term (current) drug therapy

== ENCOUNTER → 2017-07-20 | Outpatient (CLI) | payer OTHER ==
[~2017-07-20] MED LIST changes: -CELE1CAP30 PO; +OXYC-57 PO; -PRED50TA PO; -PREG75CA PO
--- NOTE | 2017-07-20 12:25 | DIAGNOSTIC IMAGING REPORT ---
CHEST 2 VIEWS ROUTINE CLINICAL HISTORY: Cough. COMPARISON STUDY: Chest radiograph and chest CT February 05, 2017. FINDINGS: Lung volumes are normal. No pneumothorax or pleural effusion is noted. There is no consolidation or evidence for pulmonary edema. Cardiomediastinal silhouette is unremarkable. IMPRESSION: No acute cardiopulmonary findings. Electronically signed by: Jeffy De La Fuente M.D. 07/20/2017 12:23 PM Dictated Date/Time: 07/20/2017 12:22 PM
== END | disposition home or self-care (01) ==
LOC: C.RAD1850 11:59
PROVIDERS: ATTEND Family Medicine
DX: R05 Cough (principal)

== ENCOUNTER → 2017-11-11 | Outpatient (CLI) | payer OTHER | END | disposition home or self-care (01) | LOC: C.LAB1850 13:19 | PROVIDERS: ATTEND Nurse Practitioner Family | DX: Z13.220 Encounter for screening for lipoid disorders (principal); Z13.1 Encounter for screening for diabetes mellitus ==